=== PATIENT | female | born 1980 | race Caucasian/White ===

== ENCOUNTER → 2016-12-14 | Outpatient (CLI) | payer MEDICAID, OTHER ==
--- NOTE | 2017-01-06 00:35 | ECWPNPC ---
PATIENT NAME: RADHA RODRÍGUEZ : 1980 GENDER: FEMALE VISIT DATE: 12/14/2016 DISCHARGE DATE: 12/14/16 1444 VISIT LOCKED DATE TIME: PHYSICIAN: VALENCIA FRANKLIN RESOURCE: VALENCIA FRANKLIN REASON FOR APPOINTMENT 1. BACK PAIN HISTORY OF PRESENT ILLNESS NEW PATIENT CONSULT: WHEN DID YOUR PAIN FIRST START? . BRIEFLY DESCRIBE HOW YOUR PAIN STARTED? . HOW DOES YOUR PAIN CHANGE WITH TIME? . DOES YOUR PAIN AWAKEN YOU FROM SLEEP? . HOW MANY HOURS OF SLEEP DO YOU NORMALLY GET? . ANY DIAGNOSTIC TESTING? . FACILITY WHERE TESTS WERE DONE? ____. PAIN TREATMENT TREATMENT YES CANCER HAVE YOU EVER HAD ANY TYPE OF CANCER?NO NO. PAIN SCREENING: PATIENT HAS A COMPLAINT OF ACUTE OR CHRONIC PAIN YES FALL RISK SCREENING: SCREENING :NO FALLS IN THE PAST YEAR [place] INVENTORY: QUESTIONNAIRE ASSESSEDYES SCORE VALUE CALCULATED NO NOT COMPLETED = DENIES SUICIDAL OR HOMICIDAL IDEATION TODAY'S VISIT: NOTES: PT REFERRED BY DR TRINO VARGAS FOR CHRONIC BACK PAIN. PT IS STATUS LUMBAR FUSION L1-4 COMPLETED IN 1993. WAS IN AN ACCIDENT IN 1992 BUT WAS LOSING STRENGTH SENSATION AND HAD A LOT OF PAIN. NERVE SENSATION GOT BETTER AFTER SURGERY BUT HAS BEEN A PROBLEM WITH PAIN CONTINIOUSLY. HAS GOTTEN WORSE. PAIN IS CENTERED IN LOW BACK, RADIATES TO HIPS, FEELS LIKE BONES SHIFT WHEN LAYING. HAS SOME INTERMITTANT NERVE PAIN IN LEFT. TO LEVEL OF KNEE. HAS PATCHY PARETHESISA. NO LOSS OF SENSATION IN FEET/TOES. PAIN ALSO RADIATES TO BACK OF NECK. HAS BEEN HAVING STIFF AND PAINFUL KNEES, AND HANDS. AREA AROUND HARDWARE SOMETIMES IS DISCOLLARED. NEEDS TO LAY DOWN A LOT. HARDEST IS PROLONGED STIING. FEELS BEST WHEN LAYING DOWN. WAS AT PT 2009 FOR SCIATIC THERAPY - THIS HELPED. NO RELIEF WITH TENS UNIT. HAD INJECTIONS - UNSURE THE TYPE IN DONALDS. THIS WAS HEPFUL. HEAT. .MEDS - UNSURE IF HELPFUL. . CURRENT MEDICATIONS TAKING MULTIVITAMIN ADULT - TABLET 1 TABLET ORALLY DAILY TAKING ACETAMINOPHEN 500 MG CAPSULE 2 CAPSULES NEEDED ORALLY EVERY 6 HRS TAKING CYMBALTA 60 MG CAPSULE DELAYED RELEASE PARTICLES 1 CAPSULE ORALLY ONCE A DAY TAKING BACLOFEN 10 MG TABLET 1 TABLET WITH FOOD OR MILK ORALLY THREE TIMES A DAY NEEDED TAKING TRAMADOL HCL 50 MG TABLET 1-2 TABLET NEEDED ORALLY EVERY 6 HRS MEDICATION LIST REVIEWED AND RECONCILED WITH THE PATIENT PAST MEDICAL HISTORY HEART MURMUR A CHILD HEAD INJURY A CHILD BACK AND NECK PAIN ARTHRITIS SEVERE WEAKNESS LEFT LEG AT TIMES ALLERGIES ANIMAL FUR: HIVES: ALLERGY SURGICAL HISTORY SPINAL FUSION L2-L4 1993 FAMILY HISTORY FATHER: ALIVE, DIAGNOSED WITH HYPERTENSION MOTHER: ALIVE, DIAGNOSED WITH HYPERTENSION 1 SISTER(S) - HEALTHY. SOCIAL HISTORY GENERAL: PAIN CLINIC PFS, CLERGY, PUBLIC HEALTH REFERRALS PFS REFERRAL NEEDED?NO CLERGY REFERRAL NEEDED?NO PUBLIC HEALTH REFERRAL NEEDED?NO WAS THE PROVIDER NOTIFIED OF ANY PERTINENT INFO?NO PSYCHOLOGICAL HX TREATMENTNO ALCOHOL OR DRUG TREATMENTNO PATIENT: DENIES ABUSE OR MISUSE OF ANY MEDICATION, REPORTS BEING EMOTIONALLY STABLE, REPORTS HAVING A SAFE AND ADEQUATE PLACE TO STORE THE MEDICATIONS, DENIES RECREATIONAL DRUG USE, DENIES USE OF ANY ILLEGAL SUBSTANCE INCLUDING MARIJUANA OR COCAINE. ADVANCED DIRECTIVES HEALTH CARE PROXY?NO POWER OF RAW SCALES OPERATOR?NO SCREENING/ASSESSMENT TOOL NUTRITION ASSESSEDYES ARE YOU ON ANY SPECIAL DIET?NO ANY SIGNIFICANT CHANGES RELATED TO EATING, WEIGHT GAIN/LOSS, OR BOWEL HABITS?NO IF YES, IS YOUR PRIMARY CARE PROVIDER AWARE OF THIS?NO SPECIAL NEEDS DENTURES: NO , WALKER: NO , CANE: NO , WHEELCHAIR: NO , REFERRALS NEEDED: NO , LEVEL OF CARE? SELF , GLASSES: NO , CONTACTS: NO , HEARING AIDS: NO . TOBACCO USE ARE YOU A:CURRENT EVERY DAY SMOKER SMOKING CESSATION INFORMATION GIVEN 12/14/16 PATIENT REFUSES VAPORNO E-CIGARETTENO CAFFEINE CAFFEINE USE?NO 2-3 CUPS COFFEE PER DAY RECREATIONAL DRUG USE DRUG USE?NO PATIENT DENIES ABUSE OR MISSUSED OF ANY MEDICATION. PATIENT DENIES USE OF ANY ILLEGAL SUBSTANCE INCLUDING MARIJUANA OR COCAINE. REVIEW OF SYSTEMS CONSTITUTIONAL: ANY CHANGE IN YOUR MEDICAL CONDITION? NO . CHILLS NO . FEVER NO . INFECTION: DO YOU HAVE NEW INFECTIONS? NO . DO YOU HAVE HISTORY OF MRSA? NO . MUSCULOSKELETAL: ANY NEW PATTERNS OF PAIN OR NUMBNESS? NO . SYTEMIC LUPUS NO . GASTROENTEROLOGY: ANY NEW CHANGE IN BOWEL CONTROL? NO . BARRETTS ESOPHAGUS NO . CIRRHOSIS NO . HEPATITIS NO . LIVER FAILURE NO . ACID REFLUX NO . UNEXPLAINED WEIGHT LOSS NO . GENITOURINARY: ANY NEW CHANGE IN BLADDER CONTROL? NO . IS THERE A CHANCE YOU COULD BE ? NO . HEMATOLOGY/LYMPH: DO YOU TAKE ANY BLOOD THINNERS? (FOR EXAMPLE- COUMADIN, PLAVIX, AGGRENOX, PLATEL, PRADAXA, OR XARELTO) NO . WHEN WAS YOUR LAST DOSE? DATE: TIME: . LOW PLATELET COUNT NO . SICKLE CELL DISEASE NO . VON WILLIEBRANDS NO . FACTOR V LEIDEN NO . THALLASEMIA NO . ANEMIA NO . EASY BRUISING NO . NEUROLOGY: HAVE YOU FALLEN IN THE PAST 6 MONTHS? YES . ANY NEW EXTREMITY NUMBNESS OR WEAKNESS? NO . HEAD INJURY NO . DEMENTIA NO . CEREBRAL PALSY NO . MULTIPLE SCLEROSIS NO . DIZZINESS NO . HEADACHE MIGRAINES IN THE PAST . STROKES NO . VERTIGO NO . CARDIOLOGY: DO YOU HAVE A PACEMAKER OR DEFIBRILLATOR? NO . ANGINA NO . HEART ATTACK NO . HEART SURGERY NO . CONGESTIVE HEART FAILURE/FLUID OVERLOAD NO . CHEST PAIN NO . HIGH BLOOD PRESSURE NO . IRREGULAR HEART BEAT NO . RESPIRATORY: HAVE YOU BEEN SICK IN THE PAST WEEK? NO . FEVER NO . FLU LIKE SYMPTOMS? NO . CPAP NO . BYPAP NO . ASTHMA NO . EMPHYSEMA NO . CHRONIC LUNG DISEASES NO . SHORTNESS OF BREATH ON EXERTION NO . DO YOU USE ANY TYPE OF TOBACCO (SMOKE, SMOKELESS, CHEW)? NO . COUGH NO . SNORING NO . INTEGUMENTARY: DO YOU HAVE ANY RASHES OR OPEN SORES? NO . ALLERGIC/IMMUNO: ARE YOU ALLERGIC TO SHELLFISH OR IV DYE? NO . ANY NEW ALLERGIES? NO . PSYCHIATRIC: DO YOU HAVE THOUGHTS OF HURTING YOURSELF OR SOMEONE ELSE? NO . ARE YOU ABUSED, NEGLECTED, OR IN AN UNSAFE ENVIRONMENT? NO . ENDOCRINOLOGY: ARE YOU DIABETIC? NO . THYROID DISORDER NO . OTHER: DO YOU NEED ANY PRESCRIPTIONS? NO . IF YES, PLEASE LIST: ____ . ANY NEW PROBLEMS WITH YOUR MEDICATIONS? NO . WHEN DID YOU LAST EAT? ____ . WHEN DID YOU LAST DRINK? ____ . WHAT DID YOU LAST DRINK? ____ . NAME OF PERSON DRIVING YOU HOME? ____ . DO YOU HAVE ANY OTHER QUESTIONS OR CONCERNS NO . REVIEWED BY: PROVIDER: VALENCIA SANTO . VITAL SIGNS WT 150 LBS, HT 67", BMI 23.49 INDEX, BP 123/94 MM HG, HR 73 /MIN, RR 16 /MIN, TEMP 97.3 F, OXYGEN SAT % 99, NA INITIALS TL 1313, REVIEWED BY: CS. EXAMINATION GENERAL EXAMINATION: PSYCHALERT , ORIENTED X 3 , APPROPRIATE MOOD AND AFFECT . HEENT:NORMOCEPHALIC, NO LYMPHADENOPATHY, NO THYROMEGLY. LUNGS:CLEAR TO AUSCULTATION BILATERALLY, NO WHEEZES, RALES OR RHONCHI. HEART:1/6 SYSTOLOC MURMUR OVER LEFT STERNAL BORDER, 2ND INTERCOSTAL SPACE, , HEART RATE REGULAR. MUSCULOSKELETAL:MUSCLE STRENGTH TESTING 5/5 BILATERAL LOWER EXTREMITIES. POINT TENDERNESS OVER LMBAR SPINOUS PROCESSES ANS ACROSS THE LUMBOSACRAL AXIS. POINT TENDERNESS IDENTIFIED AT THE LEFT PIRIFORMIS, AND OVER THE LEFT SACRAL ILIAC JOINT. BILATERAL PAIN WITH SLR AT 30 DEGREES. CAN FLEX TO 45 DEGREES, EXTEND TO 10 DEGREES AND ROTATE WITH SIGNIFICANT DIFFICULTY. PAIN WITH PELVIC COMPRESSION BILATERALY. , TRIGGER POINTS:, ELICITED WITH PALPATION OVER LUMBAR PARAVERTEBRAL MUSCLES AND INTO THE SECRUM. RESTRICTION OF ROM IN THIS AREA. TIGHT FIBROUS BANDS ANRE IDENTIFIED IN THIS AREA WHICH DECREASE ROM. NEUROLOGIC EXAM:DTR'S 2+ BUE, 4+ BLE + CLONUS BILATRALLY. DECREASED SENSATION LEFT LATERAL AND ANTERIOR THIGH. ASSESSMENTS MYALGIA - M79.1 (PRIMARY) LUMBAR POST-LAMINECTOMY SYNDROME - M96.1 SPASTICITY - R25.2 TREATMENT LUMBAR POST-LAMINECTOMY SYNDROME TRIGGER POINT 3 + VALENCIA ANN 12/14/2016 2:30:57 PM > LOW BACK NOTES: TAKE BACLOFEN 1 AFTER WORK AND 2 AT BEDTIME,TRIGGER POINT INJECTION MATERIAL WAS PRINTED,TRIGGER POINT INJECTION: YOUR EXPERIENCE MATERIAL WAS PRINTED. PROCEDURE CODES FA211 ESTABILISHED PATIENT [facility] CHARGE FOLLOW UP AFTER INJECTION (REASON: CHECK AUTH FOR TPI LOW BACK) ELECTRONICALLY SIGNED BY SAVAGE HAIRSTON ON 01/05/2017 AT 09:50 AM EST DISCLAIMER : THIS IS A VISIT SUMMARY EXTRACTED FROM THE [employer] CHART. IT IS NOT A COPY OF THE [employer] PROGRESS NOTE. MATTHEW
== END ==
LOC: M PAIN 13:20
PROVIDERS: ATTEND Nurse Practitioner Family
DX: G89.29 Other chronic pain (principal); M79.1 Myalgia; M96.1 Postlaminectomy syndrome, not elsewhere classified; R25.2 Cramp and spasm; M19.90 Unspecified osteoarthritis, unspecified site; L23.81 Allergic contact dermatitis due to animal (cat) (dog) dander; F17.200 Nicotine dependence, unspecified, uncomplicated; Z79.1 Long term (current) use of non-steroidal anti-inflammatories (NSAID); Z79.891 Long term (current) use of opiate analgesic; Z79.899 Other long term (current) drug therapy; Z87.820 Personal history of traumatic brain injury

== ENCOUNTER → 2016-12-22 | Outpatient (CLI) | payer OTHER ==
[~2016-12-22] MED LIST: BUPIVACAINE HCL 0.25% 10 ML VIAL As Ordered ONE; BUPIVACAINE HCL 0.25% 30 ML VIAL As Ordered ONE; TRIAMCINOLONE ACETONIDE SUSP 40 MG/ML VIAL (J3301) As Ordered ONE; diazePAM 5 MG TAB As Ordered ONE; oxyCODONE 5MG TAB As Ordered ONE
--- NOTE | 2016-12-31 23:48 | ECWPNPC ---
PATIENT NAME: RADHA RODRÍGUEZ : 1980 GENDER: FEMALE VISIT DATE: 12/22/2016 DISCHARGE DATE: 12/22/16 1534 VISIT LOCKED DATE TIME: PHYSICIAN: CARLITOS COLON RESOURCE: CARLITOS COLON REASON FOR APPOINTMENT 1. TPI-LOW BACK CURRENT MEDICATIONS TAKING MULTIVITAMIN ADULT - TABLET 1 TABLET ORALLY DAILY, NOTES: 2-3 DAYS TAKING ACETAMINOPHEN 500 MG CAPSULE 2 CAPSULES NEEDED ORALLY EVERY 6 HRS, NOTES: 2-3 DAYS TAKING CYMBALTA 60 MG CAPSULE DELAYED RELEASE PARTICLES 1 CAPSULE ORALLY ONCE A DAY, NOTES: 1000 TAKING BACLOFEN 10 MG TABLET 1 TABLET WITH FOOD OR MILK ORALLY THREE TIMES A DAY NEEDED, NOTES: 12-21-161999 TAKING TRAMADOL HCL 50 MG TABLET 1-2 TABLET NEEDED ORALLY EVERY 6 HRS, NOTES: 1200 PAST MEDICAL HISTORY HEART MURMUR A CHILD HEAD INJURY A CHILD BACK AND NECK PAIN ARTHRITIS SEVERE WEAKNESS LEFT LEG AT TIMES ALLERGIES ANIMAL FUR: HIVES: ALLERGY SURGICAL HISTORY SPINAL FUSION L2-L4 1993 HOSPITALIZATION/MAJOR DIAGNOSTIC PROCEDURE SURGERY 1993 VITAL SIGNS WT 150 LBS, HT 67", BMI 23.49 INDEX, BP 117/80 MM HG, HR 81 /MIN, RR 16 /MIN, TEMP 95.5 F, OXYGEN SAT % 99%, NA INITIALS SC 14:02. ASSESSMENTS MYALGIA - M79.1 (PRIMARY) PROCEDURES PN TRIGGER POINT INJECTION WITH STEROIDS PRE PROCEDURE DIAGNOSIS 1. MYALGIA 2. PAIN AT LEFT THORACIC AREA AND LEFT LOW BACK AREA POST PROCEDURE DIAGNOSIS 1. MYALGIA 2. PAIN AT LEFT THORACIC AREA AND LEFT LOW BACK AREA PROCEDURE TRIGGER POINT INJECTION AT LEFT THORACIC AREA AND LEFT LOW BACK AREA SURGEON DR. CARLITOS COLON WASTEWATER PLANT OPERATOR NONE ANESTHESIA LOCAL PRE PROCEDURE NOTE THE PATIENT HAS A HISTORY OF CHRONIC PAIN AT THE LEFT THORACIC AREA AND LEFT LOW BACK AREA. I EVALUATE THE PATIENT AND REVIEWED THE CHART. THERE IS EVIDENCE OF BANDS OF TISSUE WITH RESTRICTION OF MOVEMENT AND PRESENCE OF TRIGGER POINT AT THE AFFECTED AREA. I WENT OVER THE RISKS, ALTERNATIVES, AND BENEFITS ASSOCIATED WITH THIS PROCEDURE. THE PATIENT WOULD LIKE TO PROCEED AND GIVE CONSENT TO PERFORMED THE PROCEDURE. THE PATIENT DENIES UNEXPLAINABLE WEIGHT LOSS, FEVER, CHILLS, OR NEW CHANGES IN URINARY OR BOWEL CONTROL DESCRIPTION OF PROCEDURE THE PATIENT WAS BROUGHT TO THE PROCEDURE ROOM AND PLACED IN THE SITTING POSITION. THE AREA WAS CLEANED WITH ALCOHOL. THE PROCEDURE WAS DONE USING ASEPTIC STERILE TECHNIQUE. I CHECKED LATERALITY AND THE LEVEL WHERE THE PROCEDURE WAS GOING TO BE PERFORMED WITH THE PATIENT AND THE SUPPORTING STAFF AT THE MOMENT OF THE TIME OUT IN THE PROCEDURE ROOM. USING A 25-GAUGE NEEDLE, TRIGGER POINTS WERE INJECTED AT THE LEFT THORACIC AREA AND LEFT LOW BACK AREA WITH A TOTAL OF 40 ML OF BUPIVACAINE 0.25% AND KENALOG 40 MG. THERE WAS NO EVIDENCE OF BLOOD, PARESTHESIA OR CEREBROSPINAL FLUID DURING THE PROCEDURE. THE PATIENT WAS SENT TO THE RECOVERY ROOM. THE PATIENT WAS MOVING THE EXTREMITIES AND DOING WELL. THERE WAS NO COMPLICATION DURING THE PROCEDURE POST PROCEDURE NOTE THE PATIENT WILL BE SEEN IN A FOLLOW UP IN THE NEXT FEW WEEKS. INSTRUCTIONS WERE GIVEN, QUESTIONS WERE ANSWERED, AND THE PATIENT EXPRESSED UNDERSTANDING AND AGREES WITH THE PLAN. INSTRUCTIONS WERE GIVEN, QUESTIONS WERE ANSWERED, PATIENT REPORTS UNDERSTANDING AND AGREES WITH THE PLAN. I, OBED EMERY, DOCUMENTED THE ABOVE INFORMATION ACTING A SCRIBE FOR DR. COLON. I HAVE REVIEWED THE ABOVE DOCUMENT, WRITTEN BY OBED EMERY SCRIBE AND I VERIFY THAT IT IS ACCURATE. PROCEDURE CODES 15773 INJ TRIGGER POINT 11/27 [facility] FOLLOW UP 3 WEEKS ELECTRONICALLY SIGNED BY CARLITOS COLON MD ON 12/31/2016 AT 07:53 PM EST DISCLAIMER : THIS IS A VISIT SUMMARY EXTRACTED FROM THE [employer] CHART. IT IS NOT A COPY OF THE [employer] PROGRESS NOTE. MATTHEW
== END ==
LOC: M PAIN 14:00
PROVIDERS: ATTEND Anesthesiology
DX: G89.29 Other chronic pain (principal); M79.1 Myalgia; M54.6 Pain in thoracic spine; M54.5 Low back pain; M19.90 Unspecified osteoarthritis, unspecified site; J30.81 Allergic rhinitis due to animal (cat) (dog) hair and dander; Z79.1 Long term (current) use of non-steroidal anti-inflammatories (NSAID); Z79.891 Long term (current) use of opiate analgesic; Z79.899 Other long term (current) drug therapy
CPT/HCPCS: 20552; J3301

== ENCOUNTER → 2017-01-15 | Outpatient (CLI) | payer OTHER ==
--- NOTE | 2017-01-19 00:07 | ECWPNPC ---
PATIENT NAME: RADHA RODRÍGUEZ : 1980 GENDER: FEMALE VISIT DATE: 01/15/2017 DISCHARGE DATE: 01/15/17 1528 VISIT LOCKED DATE TIME: PHYSICIAN: VALENCIA FRANKLIN RESOURCE: VALENCIA FRANKLIN REASON FOR APPOINTMENT 1. BACK HISTORY OF PRESENT ILLNESS HISTORY OF PRESENT ILLNESS: PAIN THE PATIENT DESCRIBES THE PAIN... FALL RISK SCREENING: SCREENING :NO FALLS IN THE PAST YEAR TODAY'S VISIT: NOTES: RATES PAIN TODAY 06/04. IS S/P TPI TO LOW BACK WITH STEROIDS COMPLETED ON 12/22/16. HAD SOME RELEIF IN THE AREA WHERE INJECTION WAS DONE. IS NOW NOTING PAIN ABOVE AND BELOW THE PREVIOUS INJECTION AREA. 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 CURRENT MEDICATIONS TAKING MULTIVITAMIN ADULT - TABLET 1 TABLET ORALLY DAILY TAKING ACETAMINOPHEN 500 MG CAPSULE 2 CAPSULES NEEDED ORALLY EVERY 6 HRS TAKING CYMBALTA 60 MG CAPSULE DELAYED RELEASE PARTICLES 1 CAPSULE ORALLY ONCE A DAY TAKING BACLOFEN 10 MG TABLET 1 TABLET WITH FOOD OR MILK ORALLY THREE TIMES A DAY NEEDED TAKING TRAMADOL HCL 50 MG TABLET 1-2 TABLET NEEDED ORALLY EVERY 6 HRS MEDICATION LIST REVIEWED AND RECONCILED WITH THE PATIENT PAST MEDICAL HISTORY HEART MURMUR A CHILD HEAD INJURY A CHILD BACK AND NECK PAIN ARTHRITIS SEVERE WEAKNESS LEFT LEG AT TIMES ALLERGIES ANIMAL FUR: HIVES: ALLERGY SURGICAL HISTORY SPINAL FUSION L2-L4 1993 FAMILY HISTORY FATHER: ALIVE, DIAGNOSED WITH HYPERTENSION MOTHER: ALIVE, DIAGNOSED WITH HYPERTENSION 1 SISTER(S) - HEALTHY. . SOCIAL HISTORY GENERAL: TOBACCO USE ARE YOU A:CURRENT EVERY DAY SMOKER VAPORNO SMOKING CESSATION INFORMATION GIVEN 12/14/16 PATIENT REFUSES E-CIGARETTENO ARE YOU A:NONSMOKER RECREATIONAL DRUG USE PATIENT DENIES USE OF ANY ILLEGAL SUBSTANCE INCLUDING MARIJUANA OR COCAINE. PATIENT DENIES ABUSE OR MISSUSED OF ANY MEDICATION. DRUG USE?NO CAFFEINE CAFFEINE USE?NO 2-3 CUPS COFFEE PER DAY LEARNING BARRIERS / SPECIAL NEEDS ORIENTED TO PLAN OF CARE: PATIENT, PAIN MANAGEMENT PATIENT, ORIENTED TO PLAN OF CARE: PATIENT, PAIN MANAGEMENT PATIENT. PSYCHOLOGICAL HX TREATMENTNO NEW PATIENT PAIN DIARY TODAY'S VISITNOTES FROM 0-10, WHAT LEVEL IS YOUR PAIN TODAY?0 PAIN CLINIC PFS, CLERGY, PUBLIC HEALTH REFERRALS CLERGY REFERRAL NEEDED?NO WAS THE PROVIDER NOTIFIED OF ANY PERTINENT INFO?NO PFS REFERRAL NEEDED?NO PUBLIC HEALTH REFERRAL NEEDED?NO PFS REFERRAL NEEDED?NO CLERGY REFERRAL NEEDED?NO PUBLIC HEALTH REFERRAL NEEDED?NO WAS THE PROVIDER NOTIFIED OF ANY PERTINENT INFO?NO PFS REFERRAL NEEDED?NO CLERGY REFERRAL NEEDED?NO PUBLIC HEALTH REFERRAL NEEDED?NO WAS THE PROVIDER NOTIFIED OF ANY PERTINENT INFO?NO PATIENT: DENIES ABUSE OR MISUSE OF ANY MEDICATION, REPORTS BEING EMOTIONALLY STABLE, REPORTS HAVING A SAFE AND ADEQUATE PLACE TO STORE THE MEDICATIONS, DENIES RECREATIONAL DRUG USE, DENIES USE OF ANY ILLEGAL SUBSTANCE INCLUDING MARIJUANA OR COCAINE. ADVANCED DIRECTIVES HEALTH CARE PROXY?NO POWER OF TUBE CUTTER?NO HOSPITALIZATION/MAJOR DIAGNOSTIC PROCEDURE SURGERY 1993 REVIEW OF SYSTEMS CONSTITUTIONAL: ANY CHANGE IN YOUR MEDICAL CONDITION? NO . CHILLS NO . FEVER NO . INFECTION: DO YOU HAVE NEW INFECTIONS? NO . DO YOU HAVE HISTORY OF MRSA? NO . MUSCULOSKELETAL: ANY NEW PATTERNS OF PAIN OR NUMBNESS? NO . GASTROENTEROLOGY: ANY NEW CHANGE IN BOWEL CONTROL? NO . GENITOURINARY: ANY NEW CHANGE IN BLADDER CONTROL? NO . IS THERE A CHANCE YOU COULD BE ? NO . HEMATOLOGY/LYMPH: DO YOU TAKE ANY BLOOD THINNERS? (FOR EXAMPLE- COUMADIN, PLAVIX, AGGRENOX, PLATEL, PRADAXA, OR XARELTO) NO . WHEN WAS YOUR LAST DOSE? DATE: TIME: . NEUROLOGY: HAVE YOU FALLEN IN THE PAST 6 MONTHS? NO . ANY NEW EXTREMITY NUMBNESS OR WEAKNESS? NO . CARDIOLOGY: DO YOU HAVE A PACEMAKER OR DEFIBRILLATOR? NO . RESPIRATORY: HAVE YOU BEEN SICK IN THE PAST WEEK? NO . FEVER NO . FLU LIKE SYMPTOMS? NO . COUGH NO . INTEGUMENTARY: DO YOU HAVE ANY RASHES OR OPEN SORES? NO . ALLERGIC/IMMUNO: ARE YOU ALLERGIC TO SHELLFISH OR IV DYE? NO . ANY NEW ALLERGIES? NO . PSYCHIATRIC: DO YOU HAVE THOUGHTS OF HURTING YOURSELF OR SOMEONE ELSE? NO . ARE YOU ABUSED, NEGLECTED, OR IN AN UNSAFE ENVIRONMENT? NO . ENDOCRINOLOGY: ARE YOU DIABETIC? NO . OTHER: DO YOU NEED ANY PRESCRIPTIONS? NO . IF YES, PLEASE LIST: ____ . ANY NEW PROBLEMS WITH YOUR MEDICATIONS? NO . WHEN DID YOU LAST EAT? ____ . WHEN DID YOU LAST DRINK? ____ . WHAT DID YOU LAST DRINK? ____ . NAME OF PERSON DRIVING YOU HOME? ____ . DO YOU HAVE ANY OTHER QUESTIONS OR CONCERNS NO . REVIEWED BY: PROVIDER: VALENCIA SANTO . VITAL SIGNS WT 145.4 LBS, HT 67", BMI 22.77 INDEX, BP 127/96 MM HG, HR 99 /MIN, RR 16 /MIN, TEMP 97.2 F, OXYGEN SAT % 99%, NA INITIALS SC 14:24, REVIEWED BY: LS. EXAMINATION GENERAL EXAMINATION: PSYCHALERT , ORIENTED X 3 , POOR EYE CONTACT. VERY QUIET.. LUNGS:CLEAR TO AUSCULTATION BILATERALLY. HEART:HEART RATE REGULAR. MUSCULOSKELETAL:TRIGGER POINTS ARE IDENTIFIED OVER THE MIDTHORACIC PARAVERTEBRAL MUSCLES. FIBROUS BANDS WHICH RESTRICT RANGE OF MOTION WITH TWISTING FLEXION AND EXTENSION. TENDERNESS ALSO NOTED OVER THE LUMBAR PARAVERTEBRAL MUSCLES AND INTO THE SACRUM. SLOW STRENGTH IS NORMAL. WE'LL TO RISE TO A STANDING POSITION POSTURE IS HELD VERY STIFFLY.. ASSESSMENTS MYALGIA - M79.1 (PRIMARY) LUMBAR POST-LAMINECTOMY SYNDROME - M96.1 SPASTICITY - R25.2 TREATMENT MYALGIA TRIGGER POINT 3 + VALENCIA ANN 01/15/2017 3:15:29 PM > LOW THORACIC NOTES: CONTINUE CURRENT MEDS. DISPOSITION & COMMUNICATION FOLLOW UP AFTER INJECTION (REASON: CHECK TPI AUTH - LOW THORACIC) ELECTRONICALLY SIGNED BY SAVAGE HAIRSTON ON 01/18/2017 AT 11:59 AM EST DISCLAIMER : THIS IS A VISIT SUMMARY EXTRACTED FROM THE [employer] CHART. IT IS NOT A COPY OF THE [employer] PROGRESS NOTE. MTDD
== END ==
LOC: M PAIN 14:20
PROVIDERS: ATTEND Nurse Practitioner Family
DX: Z09 Encounter for follow-up examination after completed treatment for conditions other than malignant neoplasm (principal); G89.29 Other chronic pain; M54.5 Low back pain; M54.2 Cervicalgia; M79.1 Myalgia; F17.210 Nicotine dependence, cigarettes, uncomplicated; L23.81 Allergic contact dermatitis due to animal (cat) (dog) dander; M96.1 Postlaminectomy syndrome, not elsewhere classified; M19.90 Unspecified osteoarthritis, unspecified site; R25.2 Cramp and spasm; Z79.891 Long term (current) use of opiate analgesic; Z79.899 Other long term (current) drug therapy; Z98.1 Arthrodesis status; Z91.048 Other nonmedicinal substance allergy status

== ENCOUNTER → 2017-02-06 | Outpatient (CLI) | payer OTHER ==
--- NOTE | 2017-02-10 23:23 | ECWPNPC ---
PATIENT NAME: RADHA RODRÍGUEZ : 1980 GENDER: FEMALE VISIT DATE: 02/06/2017 DISCHARGE DATE: 02/06/17 1428 VISIT LOCKED DATE TIME: PHYSICIAN: CARLITOS COLON RESOURCE: CARLITOS COLON REASON FOR APPOINTMENT 1. TPI HISTORY OF PRESENT ILLNESS HISTORY OF PRESENT ILLNESS: PAIN THE PATIENT DESCRIBES THE PAIN... FALL RISK SCREENING: SCREENING :NO FALLS IN THE PAST YEAR CURRENT MEDICATIONS TAKING MULTIVITAMIN ADULT - TABLET 1 TABLET ORALLY DAILY, NOTES: 02/04/17 TAKING ACETAMINOPHEN 500 MG CAPSULE 2 CAPSULES NEEDED ORALLY EVERY 6 HRS, NOTES: 02/06/17 0900 TAKING CYMBALTA 60 MG CAPSULE DELAYED RELEASE PARTICLES 1 CAPSULE ORALLY ONCE A DAY, NOTES: 02/06/17 09 TAKING BACLOFEN 10 MG TABLET 1 TABLET WITH FOOD OR MILK ORALLY THREE TIMES A DAY NEEDED, NOTES: 02/05/17 2200 TAKING TRAMADOL HCL 50 MG TABLET 1-2 TABLET NEEDED ORALLY EVERY 6 HRS, NOTES: 02/05/17 0900 MEDICATION LIST REVIEWED AND RECONCILED WITH THE PATIENT PAST MEDICAL HISTORY HEART MURMUR A CHILD HEAD INJURY A CHILD BACK AND NECK PAIN ARTHRITIS SEVERE WEAKNESS LEFT LEG AT TIMES ALLERGIES ANIMAL FUR: HIVES: ALLERGY SOCIAL HISTORY GENERAL: TOBACCO USE ARE YOU A:NONSMOKER LEARNING BARRIERS / SPECIAL NEEDS ORIENTED TO PLAN OF CARE: PATIENT, PAIN MANAGEMENT PATIENT, ORIENTED TO PLAN OF CARE: PATIENT, PAIN MANAGEMENT PATIENT. NEW PATIENT PAIN DIARY TODAY'S VISITNOTES FROM 0-10, WHAT LEVEL IS YOUR PAIN TODAY?0 PAIN CLINIC PFS, CLERGY, PUBLIC HEALTH REFERRALS PFS REFERRAL NEEDED?NO CLERGY REFERRAL NEEDED?NO PUBLIC HEALTH REFERRAL NEEDED?NO WAS THE PROVIDER NOTIFIED OF ANY PERTINENT INFO?NO PFS REFERRAL NEEDED?NO CLERGY REFERRAL NEEDED?NO PUBLIC HEALTH REFERRAL NEEDED?NO WAS THE PROVIDER NOTIFIED OF ANY PERTINENT INFO?NO REVIEW OF SYSTEMS CONSTITUTIONAL: ANY CHANGE IN YOUR MEDICAL CONDITION? NO . CHILLS NO . FEVER NO . INFECTION: DO YOU HAVE NEW INFECTIONS? NO . DO YOU HAVE HISTORY OF MRSA? NO . MUSCULOSKELETAL: ANY NEW PATTERNS OF PAIN OR NUMBNESS? NO . GASTROENTEROLOGY: ANY NEW CHANGE IN BOWEL CONTROL? NO . GENITOURINARY: ANY NEW CHANGE IN BLADDER CONTROL? NO . IS THERE A CHANCE YOU COULD BE ? NO . HEMATOLOGY/LYMPH: DO YOU TAKE ANY BLOOD THINNERS? (FOR EXAMPLE- COUMADIN, PLAVIX, AGGRENOX, PLATEL, PRADAXA, OR XARELTO) NO . WHEN WAS YOUR LAST DOSE? DATE: TIME: . NEUROLOGY: HAVE YOU FALLEN IN THE PAST 6 MONTHS? YES FELL IN SNOW-NO INJURY/NO ED EVAL . ANY NEW EXTREMITY NUMBNESS OR WEAKNESS? NO . CARDIOLOGY: DO YOU HAVE A PACEMAKER OR DEFIBRILLATOR? NO . RESPIRATORY: HAVE YOU BEEN SICK IN THE PAST WEEK? NO . FEVER NO . FLU LIKE SYMPTOMS? NO . COUGH NO . INTEGUMENTARY: DO YOU HAVE ANY RASHES OR OPEN SORES? NO . ALLERGIC/IMMUNO: ARE YOU ALLERGIC TO SHELLFISH OR IV DYE? NO . ANY NEW ALLERGIES? NO . PSYCHIATRIC: DO YOU HAVE THOUGHTS OF HURTING YOURSELF OR SOMEONE ELSE? NO . ARE YOU ABUSED, NEGLECTED, OR IN AN UNSAFE ENVIRONMENT? NO . ENDOCRINOLOGY: ARE YOU DIABETIC? NO . OTHER: DO YOU NEED ANY PRESCRIPTIONS? NO . IF YES, PLEASE LIST: ____ . ANY NEW PROBLEMS WITH YOUR MEDICATIONS? NO . WHEN DID YOU LAST EAT? ____02/05/17 2100 . WHEN DID YOU LAST DRINK? ____02/06/17 1000 . WHAT DID YOU LAST DRINK? ____WATER . NAME OF PERSON DRIVING YOU HOME? ____DAD . DO YOU HAVE ANY OTHER QUESTIONS OR CONCERNS NO . REVIEWED BY: PROVIDER: . VITAL SIGNS WT 143.3 LBS, HT 67", BMI 22.44 INDEX, BP 142/97 MM HG, HR 92 /MIN, RR 16 /MIN, TEMP 96.9 F, OXYGEN SAT % 99, NA INITIALS [id number], REVIEWED BY: MLF. ASSESSMENTS MYALGIA - M79.1 (PRIMARY) PROCEDURES PN TRIGGER POINT INJECTION WITH STEROIDS PRE PROCEDURE DIAGNOSIS 1. MYALGIA 2. PAIN AT BILATERAL THORACIC AREA AND LEFT LOWER BACK AREA POST PROCEDURE DIAGNOSIS 1. MYALGIA 2. PAIN AT BILATERAL THORACIC AREA AND LEFT LOWER BACK AREA PROCEDURE TRIGGER POINT INJECTION AT BILATERAL THORACIC AREA AND LEFT LOWER BACK AREA SURGEON DR. CARLITOS COLON REED DIPPER NONE ANESTHESIA LOCAL PRE PROCEDURE NOTE THE PATIENT HAS A HISTORY OF CHRONIC PAIN AT THE RIGHT AND LEFT THORACIC AREA AND LEFT LOWER BACK AREA. I EVALUATE THE PATIENT AND REVIEWED THE CHART. THERE IS EVIDENCE OF BANDS OF TISSUE WITH RESTRICTION OF MOVEMENT AND PRESENCE OF TRIGGER POINT AT THE AFFECTED AREA. I WENT OVER THE RISKS, ALTERNATIVES, AND BENEFITS ASSOCIATED WITH THIS PROCEDURE. THE PATIENT WOULD LIKE TO PROCEED AND GIVE CONSENT TO PERFORMED THE PROCEDURE. THE PATIENT DENIES UNEXPLAINABLE WEIGHT LOSS, FEVER, CHILLS, OR NEW CHANGES IN URINARY OR BOWEL CONTROL DESCRIPTION OF PROCEDURE THE PATIENT WAS BROUGHT TO THE PROCEDURE ROOM AND PLACED IN THE SITTING POSITION. THE AREA WAS CLEANED WITH ALCOHOL. THE PROCEDURE WAS DONE USING ASEPTIC STERILE TECHNIQUE. I CHECKED LATERALITY AND THE LEVEL WHERE THE PROCEDURE WAS GOING TO BE PERFORMED WITH THE PATIENT AND THE SUPPORTING STAFF AT THE MOMENT OF THE TIME OUT IN THE PROCEDURE ROOM. USING A 25-GAUGE NEEDLE, TRIGGER POINTS WERE INJECTED AT THE RIGHT AND LEFT THORACIC AREA AND LEFT LOWER BACK AREA WITH A TOTAL OF 40 ML OF BUPIVACAINE 0.25% AND KENALOG 40 MG. THERE WAS NO EVIDENCE OF BLOOD, PARESTHESIA OR CEREBROSPINAL FLUID DURING THE PROCEDURE. THE PATIENT WAS SENT TO THE RECOVERY ROOM. THE PATIENT WAS MOVING THE EXTREMITIES AND DOING WELL. THERE WAS NO COMPLICATION DURING THE PROCEDURE POST PROCEDURE NOTE THE PATIENT WILL BE SEEN IN A FOLLOW UP IN THE NEXT FEW WEEKS. INSTRUCTIONS WERE GIVEN, QUESTIONS WERE ANSWERED, AND THE PATIENT EXPRESSED UNDERSTANDING AND AGREES WITH THE PLAN. I, CAREN NICOLE, DOCUMENTED THE ABOVE INFORMATION ACTING A SCRIBE FOR DR. COLON. I HAVE REVIEWED THE ABOVE DOCUMENT, WRITTEN BY CAREN SAMSON AND I VERIFY THAT IT IS ACCURATE PROCEDURE CODES 88283 INJECT TRIGGER POINTS 3/> DISPOSITION & COMMUNICATION FOLLOW UP 3 WEEKS ELECTRONICALLY SIGNED BY CARLITOS COLON MD ON 02/10/2017 AT 09:36 PM EDT DISCLAIMER : THIS IS A VISIT SUMMARY EXTRACTED FROM THE [employer] CHART. IT IS NOT A COPY OF THE [employer] PROGRESS NOTE. MTDShanda
== END ==
LOC: M PAIN 11:40
PROVIDERS: ATTEND Anesthesiology
DX: G89.29 Other chronic pain (principal); M79.1 Myalgia; M54.5 Low back pain; M54.6 Pain in thoracic spine; M19.90 Unspecified osteoarthritis, unspecified site; Z79.891 Long term (current) use of opiate analgesic; Z79.899 Other long term (current) drug therapy; Z91.048 Other nonmedicinal substance allergy status
CPT/HCPCS: 20553; J3301

== ENCOUNTER → 2017-02-19 | Outpatient (CLI) | payer OTHER | LOC: M PAIN 14:00 | PROVIDERS: ATTEND Nurse Practitioner Family | DX: Z09 Encounter for follow-up examination after completed treatment for conditions other than malignant neoplasm (principal); M96.1 Postlaminectomy syndrome, not elsewhere classified; M79.1 Myalgia; R25.2 Cramp and spasm; M19.90 Unspecified osteoarthritis, unspecified site; L23.81 Allergic contact dermatitis due to animal (cat) (dog) dander; Z79.1 Long term (current) use of non-steroidal anti-inflammatories (NSAID); Z79.899 Other long term (current) drug therapy ==

== ENCOUNTER → 2017-03-19 | Outpatient (CLI) | payer OTHER ==
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
== END ==
LOC: M PAIN 14:00
PROVIDERS: ATTEND Nurse Practitioner Family
DX: M96.1 Postlaminectomy syndrome, not elsewhere classified (principal); M79.1 Myalgia; R25.2 Cramp and spasm; M19.90 Unspecified osteoarthritis, unspecified site; L23.81 Allergic contact dermatitis due to animal (cat) (dog) dander; Z79.899 Other long term (current) drug therapy

== ENCOUNTER → 2017-05-17 | Outpatient (CLI) | payer OTHER ==
--- NOTE | 2017-06-06 01:22 | ECWPNPC ---
PATIENT NAME: RADHA RODRÍGUEZ : 1980 GENDER: FEMALE VISIT DATE: 05/17/2017 DISCHARGE DATE: 05/17/17 1000 VISIT LOCKED DATE TIME: PHYSICIAN: VALENCIA FRANKLIN RESOURCE: VALENCIA FRANKLIN REASON FOR APPOINTMENT 1. BACK HISTORY OF PRESENT ILLNESS HISTORY OF PRESENT ILLNESS: PAIN THE PATIENT DESCRIBES THE PAIN... FALL RISK SCREENING: SCREENING :NO FALLS IN THE PAST YEAR TODAY'S VISIT: NOTES: RATES PAIN TODAY 8/10. DESCRIBES PAIN TODAY CONSTANT, CONSTANT, SHARP, STABBING, TENDER, SORE AND SHOOTING. NOTES NOT MUCH CHANGE AND LEFT SIDE LOW BACK IS THE WORST. SLEEP HAS IMPROVED WITH NEW MATTRESS. NOTES NOT MOVING PROVIDES THE MOST COMFORT.. CURRENT MEDICATIONS TAKING MULTIVITAMIN ADULT - TABLET 1 TABLET ORALLY DAILY, NOTES: 02/04/17 TAKING ACETAMINOPHEN 500 MG CAPSULE 2 CAPSULES NEEDED ORALLY EVERY 6 HRS, NOTES: 02/06/17 0900 TAKING TRAMADOL HCL 50 MG TABLET 1-2 TABLET NEEDED ORALLY EVERY 4- 6 HRS PRN PAIN MDD=5 TAKING BACLOFEN 10 MG TABLET 1 TABLET WITH FOOD OR MILK ORALLY THREE TIMES A DAY NEEDED TAKING NORCO 10-325 MG TABLET 1 TABLET NEEDED ORALLY EVERY 6-8 HOURS PRN PAIN MDD=3 TAKING CYMBALTA 60 MG CAPSULE DELAYED RELEASE PARTICLES 1 CAPSULE ORALLY ONCE A DAY TAKING MELOXICAM 15 MG TABLET 1 TABLET ORALLY BEFORE BEDTIME MEDICATION LIST REVIEWED AND RECONCILED WITH THE PATIENT PAST MEDICAL HISTORY HEART MURMUR A CHILD HEAD INJURY A CHILD BACK AND NECK PAIN ARTHRITIS SEVERE WEAKNESS LEFT LEG AT TIMES ALLERGIES ANIMAL FUR: HIVES: ALLERGY SOCIAL HISTORY GENERAL: TOBACCO USE ARE YOU A:CURRENT SMOKER PATIENT COUNSELED ON THE DANGERS OF TOBACCO USE AND URGED TO QUIT:05/17/2017 ARE YOU INTERESTED IN QUITTING?NOT READY TO QUIT COUNSELED THE PATIENT ON SMOKING EFFECTS, EDUCATION [id number]/22/2017 RECREATIONAL DRUG USE DRUG USE? NO , PATIENT DENIES ABUSE OR MISSUSED OF ANY MEDICATION . , PATIENT DENIES USE OF ANY ILLEGAL SUBSTANCE INCLUDING MARIJUANA OR COCAINE . . CAFFEINE CAFFEINE USE? NO 2-3 CUPS COFFEE PER DAY. PSYCHOLOGICAL HX TREATMENT NO . PAIN CLINIC PFS, CLERGY, PUBLIC HEALTH REFERRALS PFS REFERRAL NEEDED? NO , CLERGY REFERRAL NEEDED? NO , PUBLIC HEALTH REFERRAL NEEDED? NO , WAS THE PROVIDER NOTIFIED OF ANY PERTINENT INFO? NO . PATIENT: DENIES ABUSE OR MISUSE OF ANY MEDICATION, REPORTS BEING EMOTIONALLY STABLE, REPORTS HAVING A SAFE AND ADEQUATE PLACE TO STORE THE MEDICATIONS, DENIES RECREATIONAL DRUG USE, DENIES USE OF ANY ILLEGAL SUBSTANCE INCLUDING MARIJUANA OR COCAINE. ADVANCE DIRECTIVES HEALTH CARE PROXY? NO , POWER OF ADVANCED REGISTERED NURSE? NO . REVIEW OF SYSTEMS REVIEWED BY: PROVIDER: VALENCIA SANTO . CONSTITUTIONAL: ANY CHANGE IN YOUR MEDICAL CONDITION? NO . CHILLS NO . FEVER NO . INFECTION: DO YOU HAVE NEW INFECTIONS? NO . DO YOU HAVE HISTORY OF MRSA? NO . MUSCULOSKELETAL: ANY NEW PATTERNS OF PAIN OR NUMBNESS? NO . GASTROENTEROLOGY: ANY NEW CHANGE IN BOWEL CONTROL? NO . GENITOURINARY: ANY NEW CHANGE IN BLADDER CONTROL? NO . IS THERE A CHANCE YOU COULD BE ? NO . HEMATOLOGY/LYMPH: DO YOU TAKE ANY BLOOD THINNERS? (FOR EXAMPLE- COUMADIN, PLAVIX, AGGRENOX, PLATEL, PRADAXA, OR XARELTO) NO . WHEN WAS YOUR LAST DOSE? DATE: TIME: . NEUROLOGY: HAVE YOU FALLEN IN THE PAST 6 MONTHS? NO . ANY NEW EXTREMITY NUMBNESS OR WEAKNESS? NO . CARDIOLOGY: DO YOU HAVE A PACEMAKER OR DEFIBRILLATOR? NO . RESPIRATORY: HAVE YOU BEEN SICK IN THE PAST WEEK? NO . FEVER NO . FLU LIKE SYMPTOMS? NO . COUGH NO . INTEGUMENTARY: DO YOU HAVE ANY RASHES OR OPEN SORES? NO . ALLERGIC/IMMUNO: ARE YOU ALLERGIC TO SHELLFISH OR IV DYE? NO . ANY NEW ALLERGIES? NO . PSYCHIATRIC: DO YOU HAVE THOUGHTS OF HURTING YOURSELF OR SOMEONE ELSE? NO . ARE YOU ABUSED, NEGLECTED, OR IN AN UNSAFE ENVIRONMENT? NO . ENDOCRINOLOGY: ARE YOU DIABETIC? NO . OTHER: DO YOU NEED ANY PRESCRIPTIONS? NO . IF YES, PLEASE LIST: ____ . ANY NEW PROBLEMS WITH YOUR MEDICATIONS? NO . WHEN DID YOU LAST EAT? ____ . WHEN DID YOU LAST DRINK? ____ . WHAT DID YOU LAST DRINK? ____ . NAME OF PERSON DRIVING YOU HOME? ____ . DO YOU HAVE ANY OTHER QUESTIONS OR CONCERNS NO . VITAL SIGNS WT 140 LBS, HT 67", BMI 21.92 INDEX, BP 126/82 MM HG, HR 103 /MIN, RR 16 /MIN, TEMP 97.7 F, OXYGEN SAT % 100%, NA INITIALS TL 0933, REVIEWED BY: ZEE. EXAMINATION GENERAL EXAMINATION: PSYCHALERT , ORIENTED X 3 , APPEARS SAD. LUNGS:CLEAR TO AUSCULTATION BILATERALLY. HEART:HEART RATE REGULAR. MUSCULOSKELETAL:POINT TENDERNESS OVER LEFT LUMBAR PARASPINOUS MUSCLES AND LUMBAR FACETS. POSTURE STIFF. , MUSCLE STRENGTH TESTING 5/5 BILATERAL UPPER AND LOWER EXTREMITIES. ASSESSMENTS MYALGIA - M79.1 (PRIMARY) LUMBAR POST-LAMINECTOMY SYNDROME - M96.1 SPASTICITY - R25.2 TREATMENT MYALGIA NOTES: CONTINUE CURRENT MEDS. USE HUMOR, GUIDED IMAGRY, SOME YOGA STRETCHES.. CLINICAL NOTES: ISTOP REGISTRY REVIEWED AND DEMNOSTRATES COMPLLIANCE. BRINGS IN MEDICATIONS WHICH IS APPROPRIATE FOR WHAT WAS DISPENSED. RECENT URINE TOXICOLOGY REVIEWED. NO UNAUTHORIZED MEDICATIONS. NO ILLICIT SUBSTANCES AND PRESCRIBED MEDICATIONS WERE PRESENT. PROCEDURE CODES FA211 ESTABILISHED PATIENT [facility] FACILITY CHARGE DISPOSITION & COMMUNICATION FOLLOW UP END OF JUNE (REASON: BACK PAIN) ELECTRONICALLY SIGNED BY SAVAGE HAIRSTON ON 06/05/2017 AT 05:19 PM EDT DISCLAIMER : THIS IS A VISIT SUMMARY EXTRACTED FROM THE [employer] CHART. IT IS NOT A COPY OF THE [employer] PROGRESS NOTE. MATTHEW
== END ==
LOC: M PAIN 09:00
PROVIDERS: ATTEND Nurse Practitioner Family
DX: M79.1 Myalgia (principal); M96.1 Postlaminectomy syndrome, not elsewhere classified; R25.2 Cramp and spasm; Z79.891 Long term (current) use of opiate analgesic; Z79.899 Other long term (current) drug therapy; F17.210 Nicotine dependence, cigarettes, uncomplicated; J30.81 Allergic rhinitis due to animal (cat) (dog) hair and dander

== ENCOUNTER → 2017-08-01 | Outpatient (CLI) | payer OTHER ==
--- NOTE | 2017-08-22 01:43 | ECWPNPC ---
PATIENT NAME: RADHA RODRÍGUEZ : 1980 GENDER: FEMALE VISIT DATE: 08/01/2017 DISCHARGE DATE: 08/01/17 1405 VISIT LOCKED DATE TIME: PHYSICIAN: VALENCIA FRANKLIN RESOURCE: VALENCIA FRANKLIN REASON FOR APPOINTMENT 1. BACK HISTORY OF PRESENT ILLNESS HISTORY OF PRESENT ILLNESS: PAIN THE PATIENT DESCRIBES THE PAIN... FALL RISK SCREENING: SCREENING :NO FALLS IN THE PAST YEAR TODAY'S VISIT: NOTES: RATES PAIN TODAY 8/10 . NOTES PAIN IS CENTERED ACROSS THE LOW BACK WITH RADIATION TO LEFT LEG. DESCRIBES PAIN ACHING, SHARP, STABBING, TENDER THROBBING SHOOTING AND IS CONSTANT. . CURRENT MEDICATIONS TAKING MULTIVITAMIN ADULT - TABLET 1 TABLET ORALLY DAILY TAKING ACETAMINOPHEN 500 MG CAPSULE 2 CAPSULES NEEDED ORALLY EVERY 6 HRS TAKING BACLOFEN 10 MG TABLET 1 TABLET WITH FOOD OR MILK ORALLY THREE TIMES A DAY NEEDED TAKING CYMBALTA 60 MG CAPSULE DELAYED RELEASE PARTICLES 1 CAPSULE ORALLY ONCE A DAY TAKING MELOXICAM 15 MG TABLET 1 TABLET ORALLY BEFORE BEDTIME TAKING NORCO 10-325 MG TABLET 1 TABLET NEEDED ORALLY EVERY 6-8 HOURS PRN PAIN MDD=3 TAKING TRAMADOL HCL 50 MG TABLET 1-2 TABLET NEEDED ORALLY EVERY 4- 6 HRS PRN PAIN MDD=5 PAST MEDICAL HISTORY HEART MURMUR A CHILD HEAD INJURY A CHILD BACK AND NECK PAIN ARTHRITIS SEVERE WEAKNESS LEFT LEG AT TIMES ALLERGIES ANIMAL FUR: HIVES: ALLERGY REVIEW OF SYSTEMS REVIEWED BY: PROVIDER: VALENCIA FRANKLIN SENIOR CONSTRUCTION ESTIMATOR . CONSTITUTIONAL: ANY CHANGE IN YOUR MEDICAL CONDITION? NO . CHILLS NO . FEVER NO . INFECTION: DO YOU HAVE NEW INFECTIONS? NO . DO YOU HAVE HISTORY OF MRSA? NO . MUSCULOSKELETAL: ANY NEW PATTERNS OF PAIN OR NUMBNESS? NO . GASTROENTEROLOGY: ANY NEW CHANGE IN BOWEL CONTROL? NO . GENITOURINARY: ANY NEW CHANGE IN BLADDER CONTROL? NO . IS THERE A CHANCE YOU COULD BE ? NO . HEMATOLOGY/LYMPH: DO YOU TAKE ANY BLOOD THINNERS? (FOR EXAMPLE- COUMADIN, PLAVIX, AGGRENOX, PLATEL, PRADAXA, OR XARELTO) NO . WHEN WAS YOUR LAST DOSE? DATE: TIME: . NEUROLOGY: HAVE YOU FALLEN IN THE PAST 6 MONTHS? NO . ANY NEW EXTREMITY NUMBNESS OR WEAKNESS? NO . CARDIOLOGY: DO YOU HAVE A PACEMAKER OR DEFIBRILLATOR? NO . RESPIRATORY: HAVE YOU BEEN SICK IN THE PAST WEEK? NO . FEVER NO . FLU LIKE SYMPTOMS? NO . COUGH NO . INTEGUMENTARY: DO YOU HAVE ANY RASHES OR OPEN SORES? NO . ALLERGIC/IMMUNO: ARE YOU ALLERGIC TO SHELLFISH OR IV DYE? NO . ANY NEW ALLERGIES? NO . PSYCHIATRIC: DO YOU HAVE THOUGHTS OF HURTING YOURSELF OR SOMEONE ELSE? NO . ARE YOU ABUSED, NEGLECTED, OR IN AN UNSAFE ENVIRONMENT? NO . ENDOCRINOLOGY: ARE YOU DIABETIC? NO . OTHER: DO YOU NEED ANY PRESCRIPTIONS? NO . IF YES, PLEASE LIST: ____ . ANY NEW PROBLEMS WITH YOUR MEDICATIONS? NO . WHEN DID YOU LAST EAT? ____ . WHEN DID YOU LAST DRINK? ____ . WHAT DID YOU LAST DRINK? ____ . NAME OF PERSON DRIVING YOU HOME? ____ . DO YOU HAVE ANY OTHER QUESTIONS OR CONCERNS NO . VITAL SIGNS WT 140 LBS, HT 67", BMI 21.92 INDEX, BP 123/86 MM HG, HR 105 /MIN, RR 16 /MIN, OXYGEN SAT % 98, REVIEWED BY: NL. EXAMINATION GENERAL EXAMINATION: PSYCHALERT , ORIENTED X 3 , APPROPRIATE MOOD AND AFFECT . LUNGS:CLEAR TO AUSCULTATION BILATERALLY. HEART:HEART RATE REGULAR. MUSCULOSKELETAL:TRIGGER POINTS AND TIGHT FIBROUS BANDS IDENTIFIED OVER LUMBAR PARAVERTEBRAL MUSCLES AND INTO SACRUM LEFT SIDE, POINT TENDERNESS OVER LEFT SIJ . POSITIVE LOU SIGN LEFT.. ASSESSMENTS MYALGIA - M79.1 (PRIMARY) LUMBAR POST-LAMINECTOMY SYNDROME - M96.1 SPASTICITY - R25.2 TREATMENT MYALGIA START CYMBALTA CAPSULE DELAYED RELEASE PARTICLES, 30 MG, 1 CAPSULE, ORALLY, DAILY TDD=90 MG, 30 DAY(S), 30, REFILLS 5 START PERCOCET TABLET, 5-325 MG, 1 TABLET NEEDED, ORALLY, EVERY 6 HRS PRN PAIN MDD=3, 30 DAY(S), 75, REFILLS 0 REFILL CYMBALTA CAPSULE DELAYED RELEASE PARTICLES, 60 MG, 1 CAPSULE, ORALLY, ONCE A DAY TDD=90 MG, 30 DAY(S), 30 CAPSULE, REFILLS 5 INJECTION ANESTHETIC SACROILIAC JOINTVALENCIA FRANKLIN 08/01/2017 1:46:52 PM > LEFT NOTES: WILL DISCUSS TRIGGER POINTS AT NEXT VISIT, RISKS AND BENEFITS OF NARCOTIC/OPIOD MEDICATIONS WERE REVIEWED WITH PATIENT - THIS INCLUDES BUT IS NOT LIMITED TO RISK OF DEPENDANCE/DEVELOPMENT OF ADDICTION, MOOD DISTURBANCE AND DEPRESSION, OSTEOPOROSIS, HORMONAL AND LABIDAL CHANGES, RESPIRATORY DEPRESSION AND . PATIENT IS ADVISED NOT TO DRIVE WHILE ON THESE MEDICATIONS. CLINICAL NOTES: ISTOP REGISTRY REVIEWED AND DEMNOSTRATES COMPLLIANCE. (#[id number]). PREVENTIVE MEDICINE DISCUSSED PREPROCEDURE CARE AND THE INJECTION ITSELF/ PT EXPRESSED UNDERSTANDING. PROCEDURE CODES FA211 ESTABILISHED PATIENT [facility] FACILITY CHARGE DISPOSITION & COMMUNICATION FOLLOW UP AFTER INJECTION (REASON: CHECK AUTH LEFT SIJ) ELECTRONICALLY SIGNED BY SAVAGE HAIRSTON ON 08/21/2017 AT 08:30 AM EDT DISCLAIMER : THIS IS A VISIT SUMMARY EXTRACTED FROM THE [employer] CHART. IT IS NOT A COPY OF THE [employer] PROGRESS NOTE. MATTHEW
== END ==
LOC: M PAIN 13:00
PROVIDERS: ATTEND Nurse Practitioner Family
DX: M96.1 Postlaminectomy syndrome, not elsewhere classified (principal); R25.2 Cramp and spasm; M79.1 Myalgia; M19.90 Unspecified osteoarthritis, unspecified site; L23.81 Allergic contact dermatitis due to animal (cat) (dog) dander; Z79.899 Other long term (current) drug therapy

== ENCOUNTER → 2017-11-15 | Outpatient (CLI) | payer OTHER ==
[~2017-11-15] MED LIST changes: -BUPIVACAINE HCL 0.25% 10 ML VIAL As Ordered ONE; +BUPIVACAINE HCL 0.25% 30 ML VIAL As Ordered; -BUPIVACAINE HCL 0.25% 30 ML VIAL As Ordered ONE; +ISOVUE-M 300 61% 15ML VIAL (Q9967) As Ordered; +LIDOCAINE 1% SDV INJ 30 ML VIAL As Ordered; +TRIAMCINOLONE ACETONIDE SUSP 40 MG/ML VIAL (J3301) As Ordered; -TRIAMCINOLONE ACETONIDE SUSP 40 MG/ML VIAL (J3301) As Ordered ONE; +diazePAM 5 MG TAB As Ordered; -diazePAM 5 MG TAB As Ordered ONE; +oxyCODONE 5MG TAB As Ordered; -oxyCODONE 5MG TAB As Ordered ONE
== END ==
LOC: M PAIN 10:00
DX: G89.29 Other chronic pain (principal); M46.1 Sacroiliitis, not elsewhere classified; M53.88 Other specified dorsopathies, sacral and sacrococcygeal region; M19.90 Unspecified osteoarthritis, unspecified site; F17.200 Nicotine dependence, unspecified, uncomplicated; J30.81 Allergic rhinitis due to animal (cat) (dog) hair and dander; Z91.048 Other nonmedicinal substance allergy status; Z79.891 Long term (current) use of opiate analgesic; Z79.899 Other long term (current) drug therapy
CPT/HCPCS: J3301

== ENCOUNTER → 2017-12-19 | Outpatient (CLI) | payer OTHER | LOC: M PAIN 14:15 | DX: M46.1 Sacroiliitis, not elsewhere classified (principal); M79.1 Myalgia; M19.90 Unspecified osteoarthritis, unspecified site; F17.200 Nicotine dependence, unspecified, uncomplicated; J30.81 Allergic rhinitis due to animal (cat) (dog) hair and dander; Z79.899 Other long term (current) drug therapy; Z91.048 Other nonmedicinal substance allergy status | CPT/HCPCS: G0463 ==

== ENCOUNTER → 2017-12-28 | Outpatient (REF) | payer OTHER | LOC: M LAB REF 18:35 | DX: Z12.4 Encounter for screening for malignant neoplasm of cervix (principal) ==

== ENCOUNTER → 2018-03-11 | Outpatient (CLI) | payer OTHER | LOC: M PAIN 11:00 | DX: G89.29 Other chronic pain (principal); M46.1 Sacroiliitis, not elsewhere classified; M53.88 Other specified dorsopathies, sacral and sacrococcygeal region; M19.90 Unspecified osteoarthritis, unspecified site; F17.200 Nicotine dependence, unspecified, uncomplicated; J30.81 Allergic rhinitis due to animal (cat) (dog) hair and dander; J30.89 Other allergic rhinitis; Z79.899 Other long term (current) drug therapy | CPT/HCPCS: J3301 ==

== ENCOUNTER → 2018-04-01 | Outpatient (CLI) | payer OTHER | LOC: M PAIN 13:30 | DX: M46.1 Sacroiliitis, not elsewhere classified (principal); M19.90 Unspecified osteoarthritis, unspecified site; F17.210 Nicotine dependence, cigarettes, uncomplicated; J30.81 Allergic rhinitis due to animal (cat) (dog) hair and dander; Z79.899 Other long term (current) drug therapy; Z91.09 Other allergy status, other than to drugs and biological substances | CPT/HCPCS: G0463 ==

== ENCOUNTER → 2018-06-03 | Outpatient (CLI) | payer OTHER ==
[~2018-06-03] MED LIST changes: -diazePAM 5 MG TAB As Ordered; -oxyCODONE 5MG TAB As Ordered
== END ==
LOC: M PAIN 14:00
DX: M46.1 Sacroiliitis, not elsewhere classified (principal); M79.1 Myalgia; M19.90 Unspecified osteoarthritis, unspecified site; F17.200 Nicotine dependence, unspecified, uncomplicated; J30.81 Allergic rhinitis due to animal (cat) (dog) hair and dander; J30.89 Other allergic rhinitis; Z79.899 Other long term (current) drug therapy; Z87.820 Personal history of traumatic brain injury
CPT/HCPCS: G0463

== ENCOUNTER → 2018-10-04 | Outpatient (CLI) | payer OTHER | LOC: M PAIN 13:00 | DX: M79.18 Myalgia, other site (principal); M46.1 Sacroiliitis, not elsewhere classified; R25.2 Cramp and spasm; F17.210 Nicotine dependence, cigarettes, uncomplicated; J30.81 Allergic rhinitis due to animal (cat) (dog) hair and dander; Z79.891 Long term (current) use of opiate analgesic; Z98.1 Arthrodesis status; Z79.899 Other long term (current) drug therapy; Z91.048 Other nonmedicinal substance allergy status | CPT/HCPCS: G0463 ==

== ENCOUNTER → 2018-12-12 | Outpatient (REF) | payer SELFPAY | LOC: M LABSMT 12:52 | PROVIDERS: ATTEND Advanced Practice Midwife | DX: O03.9 Complete or unspecified spontaneous abortion without complication (principal) ==

== ENCOUNTER → 2019-01-10 | Outpatient (CLI) | payer OTHER | LOC: M SMT 14:00 | PROVIDERS: ATTEND Advanced Practice Midwife | DX: O02.1 Missed abortion (principal) ==

== ENCOUNTER → 2019-01-16 | Outpatient (CLI) | payer OTHER | LOC: M SMT 14:57 | PROVIDERS: ATTEND Advanced Practice Midwife | DX: O02.1 Missed abortion (principal) ==

== ENCOUNTER → 2019-02-03 | Outpatient (CLI) | payer OTHER ==
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
== END ==
LOC: M PAIN 13:30
PROVIDERS: ATTEND Nurse Practitioner Family
DX: M46.1 Sacroiliitis, not elsewhere classified (principal); M96.1 Postlaminectomy syndrome, not elsewhere classified; M19.90 Unspecified osteoarthritis, unspecified site; Z91.09 Other allergy status, other than to drugs and biological substances; Z72.0 Tobacco use; Z79.899 Other long term (current) drug therapy

== ENCOUNTER → 2019-02-28 | Outpatient (CLI) | payer OTHER ==
--- NOTE | 2019-03-18 02:32 | ECWPNPC ---
PATIENT NAME: RADHA RODRÍGUEZ : 1980 GENDER: FEMALE VISIT DATE: 02/28/2019 DISCHARGE DATE: 02/28/19 1613 VISIT LOCKED DATE TIME: PHYSICIAN: DEE DEE LINDSEY RESOURCE: DEE DEE LINDSEY DISCLAIMER : THIS IS A VISIT SUMMARY EXTRACTED FROM THE [facility]. IT IS NOT A COPY OF THE [employer] PROGRESS NOTE. MATTHEW
== END ==
LOC: M PAIN 14:45
PROVIDERS: ATTEND Nurse Practitioner Family
DX: M46.1 Sacroiliitis, not elsewhere classified (principal); M96.1 Postlaminectomy syndrome, not elsewhere classified; M19.90 Unspecified osteoarthritis, unspecified site; F17.210 Nicotine dependence, cigarettes, uncomplicated; Z91.09 Other allergy status, other than to drugs and biological substances; Z79.1 Long term (current) use of non-steroidal anti-inflammatories (NSAID); Z79.899 Other long term (current) drug therapy

== ENCOUNTER → 2019-04-03 | Outpatient (CLI) | payer OTHER ==
--- NOTE | 2019-04-23 01:14 | ECWPNPC ---
PATIENT NAME: RADHA RODRÍGUEZ : 1980 GENDER: FEMALE VISIT DATE: 04/03/2019 DISCHARGE DATE: 04/03/19 1438 VISIT LOCKED DATE TIME: PHYSICIAN: DEE DEE LINDSEY RESOURCE: DEE DEE LINDSEY REASON FOR APPOINTMENT 1. BACK PAIN HISTORY OF PRESENT ILLNESS HISTORY OF PRESENT ILLNESS: HERE FOR F/U OF CHRONIC GENERALIZED BACK PAIN.HAD SPINAL CRUSH INJURY AT AGE 14 WITH SUBSEQUENT LUMBAR FUSION/HARDWARE.HAS HAD CHRONIC PAIN EVER SINCE.HAS TRIALED MULTIPLE MEDICATIONS BOTH OPIOD AND NON OPIOD OVER THE YEARS.CURRENTLY USING OXYCODONE 5/325 AND TRAMADOL.PAIN LEVEL REMAINS AT 8/10 DESPITE CURRENT REGIMEN. PAIN THE PATIENT DESCRIBES THE PAIN... FALL RISK SCREENING: SCREENING :NO FALLS REPORTED IN THE LAST YEAR CURRENT MEDICATIONS TAKING MULTIVITAMIN ADULT - TABLET 1 TABLET ORALLY DAILY TAKING TIZANIDINE HCL 4 MG TABLET 1/2 TO 1 TABLET NEEDED ORALLY THREE TIMES A DAY TAKING ACETAMINOPHEN 500 MG CAPSULE 2 CAPSULES NEEDED ORALLY EVERY 6 HRS TAKING BACLOFEN 10 MG TABLET 1 TABLET WITH FOOD OR MILK ORALLY THREE TIMES A DAY NEEDED, NOTES: INSURANCE WILL NOT COVER TAKING MELOXICAM 15 MG TABLET 1 TABLET ORALLY BEFORE BEDTIME TAKING CARISOPRODOL 350 MG TABLET 1 TABLET NEEDED ORALLY BEFORE BEDTIME PRN MDD1 #25 TAB SHOULD LAST 30 DAYS TAKING PERCOCET 5-325 MG TABLET 1 TABLET NEEDED ORALLY Q6H PRN PAIN MDD4 #75 TAB SHOULD LAST 30 DAYS TAKING TRAMADOL HCL 50 MG TABLET 1-2 TABLET NEEDED ORALLY Q6H PRN MDD6 #130 TAB SHOULD LAST 30 DAYS MEDICATION LIST REVIEWED AND RECONCILED WITH THE PATIENT PAST MEDICAL HISTORY HEART MURMUR A CHILD HEAD INJURY A CHILD BACK AND NECK PAIN ARTHRITIS SEVERE WEAKNESS LEFT LEG AT TIMES ALLERGIES ANIMAL FUR: HIVES - ALLERGY PERFUME: SNEEZING - ALLERGY SURGICAL HISTORY SPINAL FUSION L2-L4 1993 FAMILY HISTORY FATHER: ALIVE MOTHER: ALIVE 1 SISTER(S) - HEALTHY. SOCIAL HISTORY GENERAL: TOBACCO USE ARE YOU A:CURRENT SMOKER ARE YOU INTERESTED IN QUITTING?THINKING ABOUT QUITTING IS USING VAPE TO HELP HER QUIT PREVIOUS QUIT ATTEMPTS?NO. COUNSELED THE PATIENT ON SMOKING CESSATION, EDUCATION [id number]/2019 HOW MANY CIGARETTES A DAY DO YOU SMOKE?11-20 HOW SOON AFTER YOU WAKE UP DO YOU SMOKE YOUR FIRST CIGARETTE?WITHIN 5 MIN HOW OFTEN DO YOU SMOKE CIGARETTES?EVERY DAY PATIENT COUNSELED ON THE DANGERS OF TOBACCO USE AND URGED TO QUIT:04/03/2019 OTHERS AT HOME: OTHER NON-RELATIVE. DIET: REGULAR. LANGUAGE LANGUAGES SPOKEN:MALIAN RECREATIONAL DRUG USE DRUG USE? NO , PATIENT DENIES ABUSE OR MISSUSED OF ANY MEDICATION . , PATIENT DENIES USE OF ANY ILLEGAL SUBSTANCE INCLUDING MARIJUANA OR COCAINE .. 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 LEARNING BARRIERS / SPECIAL NEEDS BARRIERS TO LEARNING?NO HEARING IMPAIRED?NO VISION IMPAIRED?NO COGNITIVELY IMPAIRED?NO READINESS TO LEARN?YES LEARNING PREFERENCES?NO LEARNING CAPABILITIES PRESENT?YES EMOTIONAL BARRIERS?NO PAIN CLINIC PFS, CLERGY, PUBLIC HEALTH REFERRALS PFS REFERRAL NEEDED?NO CLERGY REFERRAL NEEDED?NO PUBLIC HEALTH REFERRAL NEEDED?NO HAS THE PATIENT BEEN EDUCATED REGARDING HIS/HER PLAN OF CARE?YES HAS THE PATIENT BEEN EDUCATED REGARDING PAIN, THE RISK FOR PAIN, THE IMPORTANCE OF EFFECTIVE PAIN MANAGEMENT, AND THE PAIN ASSESSMENT PROCESS?YES LATEX QUESTIONNAIRE LATEX ALLERGY : HAVE YOU EVER DEVELOPED ANY TYPE OF REACTION AFTER HANDLING LATEX PRODUCTS SUCH RUBBER GLOVES, CONDOMS, DIAPHRAGMS, BALLOONS, SOCKS, OR UNDERWEAR?NO LATEX ALLERGY : HAVE YOU EVER DEVELOPED ANY TYPE OF REACTION DURING OR AFTER DENTAL APPOINTMENT, VAGINAL/RECTAL EXAMINATION, SURGICAL PROCEDURE, OR ANY OTHER EXPOSURE?NO LATEX RISK : HAVE YOU EVER HAD ANY DIFFICULTY BREATHING OR HIVES AFTER EATING OR HANDLING ANY FRUITS, OR VEGETABLES; SUCH KIWI, BANANAS, STONE FRUITS, OR CHESTNUTSNO LATEX RISK : DO YOU HAVE A PREVIOUS PERSONAL HISTORY OF MORE THAN NINE SURGERIES, SPINA BIFIDA, OR REPEATED CATHERTIZATIONS? NO LATEX RISK : ARE YOU FREQUENTLY EXPOSED TO LATEX PRODUCTS IN YOUR OCCUPATION?NO DATE ASKED : 02/28/2019 CAFFEINE CAFFEINE USE? NO 2-3 CUPS COFFEE PER DAY. ADVANCE DIRECTIVE ADVANCE DIRECTIVE DISCUSSED WITH PATIENT:YES PT DECLINES INFORMATION OR ASSISTANCE AT THIS TIME WORSHIP [id number] OTHER MARITAL STATUS: SINGLE. 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 REVIEWED WITH PT 04/03/19 1400 LAS. HOSPITALIZATION/MAJOR DIAGNOSTIC PROCEDURE SURGERY 1993 REVIEW OF SYSTEMS REVIEWED BY: PROVIDER: DEE DEE SANTO . CONSTITUTIONAL: ANY CHANGE IN YOUR MEDICAL CONDITION? NO . CHILLS NO . FEVER NO . INFECTION: DO YOU HAVE NEW INFECTIONS? NO . DO YOU HAVE HISTORY OF MRSA? NO . MUSCULOSKELETAL: ANY NEW PATTERNS OF PAIN OR NUMBNESS? NO . GASTROENTEROLOGY: ANY NEW CHANGE IN BOWEL CONTROL? NO . GENITOURINARY: ANY NEW CHANGE IN BLADDER CONTROL? NO . IS THERE A CHANCE YOU COULD BE ? NO . HEMATOLOGY/LYMPH: DO YOU TAKE ANY BLOOD THINNERS? (FOR EXAMPLE- COUMADIN, PLAVIX, AGGRENOX, PLATEL, PRADAXA, OR XARELTO) NO . WHEN WAS YOUR LAST DOSE? DATE: TIME: . NEUROLOGY: HAVE YOU FALLEN IN THE PAST 12 MONTHS? YES PT REPORTS SHE SLIPPED ON THE ICE AND FELL LAST WINTER. . ANY NEW EXTREMITY NUMBNESS OR WEAKNESS? NO . CARDIOLOGY: DO YOU HAVE A PACEMAKER OR DEFIBRILLATOR? NO . RESPIRATORY: HAVE YOU BEEN SICK IN THE PAST WEEK? NO . FEVER NO . FLU LIKE SYMPTOMS? NO . COUGH NO . INTEGUMENTARY: DO YOU HAVE ANY RASHES OR OPEN SORES? NO . ALLERGIC/IMMUNO: ARE YOU ALLERGIC TO IV DYE? NO . ANY NEW ALLERGIES? NO . PSYCHIATRIC: DO YOU HAVE THOUGHTS OF HURTING YOURSELF OR SOMEONE ELSE? NO . ARE YOU ABUSED, NEGLECTED, OR IN AN UNSAFE ENVIRONMENT? NO . ENDOCRINOLOGY: ARE YOU DIABETIC? NO . OTHER: DO YOU NEED ANY PRESCRIPTIONS? NO . IF YES, PLEASE LIST: ____ . ANY NEW PROBLEMS WITH YOUR MEDICATIONS? NO . WHEN DID YOU LAST EAT? ____ . WHEN DID YOU LAST DRINK? ____ . WHAT DID YOU LAST DRINK? ____ . NAME OF PERSON DRIVING YOU HOME? ____ . DO YOU HAVE ANY OTHER QUESTIONS OR CONCERNS NO . VITAL SIGNS WT 154.8 LBS, HT 67", BMI 24.24 INDEX, BP 136/83 MM HG, HR 94 /MIN, RR 16 /MIN, TEMP 98.9 F, OXYGEN SAT % 100%, SAFE IN ENV? (Y/N) YES, NA INITIALS SC 14:00, REVIEWED BY: RALEIGH. EXAMINATION GENERAL EXAMINATION: GENERAL APPEARANCE:AWAKE,ALERT ,PLEAASANT . PSYCHAFFECT NORMAL . LUNGS:LUNG ELIZONDO ARE CLEAR TO AUSCULTATION BILATERALLY. GOOD MOVEMENT OF AIR . HEART:S1, S2 IN A REGULAR RATE AND RHYTHM. NO SIGNIFICANT MURMURS, RUBS OR GALLOPS NOTED . ASSESSMENTS SACROILIITIS, NOT ELSEWHERE CLASSIFIED - M46.1 (PRIMARY) LUMBAR POST-LAMINECTOMY SYNDROME - M96.1 TREATMENT SACROILIITIS, NOT ELSEWHERE CLASSIFIED START BELBUCA 300 MCG FILM, 300 MCG, 1 FILM, BUCCAL, Q12H MDD2, 30 DAY(S), 60, REFILLS 2 NOTES: ISTOP REGISTRY REVIEWED AND DEMONSTRATES COMPLLIANCE. (REF # [id number] ) BRINGS IN MEDICATIONS WHICH IS APPROPRIATE FOR WHAT WAS DISPENSED. RECENT URINE TOXICOLOGY REVIEWED. NO UNAUTHORIZED MEDICATIONS. NO ILLICIT SUBSTANCES AND PRESCRIBED MEDICATIONS WERE PRESENT. URINE TOX TODAY, [facility] NARCOTIC AGREEMENT WAS UPDATED REVIEWED AND SIGNED TODAY BY THE PATIENT. SEE ATTACHED DOCUMENT FOR FULL DETAILS; SPECIFIC ISSUES WERE REVIEWED: 1) KEEP PAIN MEDS IN THEIR ORIGINAL BOTTLES AND ANY WEEKLY PLANNERS ARE TO BE BROUGHT TO THE PAIN CENTER AT EVERY VISIT. 2) THE PATIENT IS NOT TO INCREASE DOSING OR TIMING OF THEIR PAIN MEDICATION WITHOUT SPECIFIC DIRECTION OF THEIR PAIN CENTERPROVIDER (NOT ER OR OTHER PROVIDERS). 3) ALL PAIN MEDS ARE TO BE KEPT SECURED, IN A LOCKED BOX. 4) NO PAIN MEDS ARE TO BE SHARED WITH ANY OTHER PERSON FOR ANY REASON. 5) NO PAIN MEDS MAY BE TAKEN FROM ANY FRIENDS OR RELATIVES FOR ANY REASON 6) NO MEDS OR SUBSTANCES WHICH ARE NOT LEGAL ARE TO BE USED- NO MARIJUANA, NO COCAINE, AMPHETAMINES, HEROIN, OR OTHERS ARE EVER TO BE USED. 7)URINE TESTING IS DONE TO ACCOUNT FOR MEDS AND SUBSTANCES BEING TAKEN AND WILL BE DONE RANDOMLY., RISKS AND BENEFITS OF NARCOTIC/OPIOD MEDICATIONS WERE REVIEWED WITH PATIENT - THIS INCLUDES BUT IS NOT LIMITED TO RISK OF DEPENDANCE/DEVELOPMENT OF ADDICTION, MOOD DISTURBANCE AND DEPRESSION, OSTEOPOROSIS, HORMONAL AND LABIDAL CHANGES, RESPIRATORY DEPRESSION AND . PATIENT IS ADVISED NOT TO DRIVE OR DRINK ALCOHOL WHILE ON THESE MEDICATIONS, DUE TO PATIENT''S HISTORY OF AROUND THE CLOCK CHRONIC UNCONTROLLED PAIN IT IS MEDICALLY NECESSARY TO USE A LONG ACTING PAIN MEDICATION. WE ARE TRYING TO LIMIT TOTAL MORPHINE MILLEQUIVALENTS, NUMBER OF PRESCRIPTIONS ISSUED AND C II MEDICATIONS PER CLINICAL GUIDELINES AND BELBUCA WOULD BE INDICATED TO MEET THIS CRITERIA. I AM ALSO USING BELBUCA TO MINIMIZE POTENTIAL FOR SIDE EFFECTS ASSOCIATED WITH C II NARCOTICS AND MUSCLE RELAXANTS .DUE TO THE ABOVE REASONS LONG ACTING NARCOTIC PAIN MEDICATION AVAILABLE ON HER FORMULARY IS NOT RECOMMENDED. PREVENTIVE MEDICINE PAIN CLINIC TEACHING: MEDICATIONS TEACHING HANDOUT FOR BELBUCA PRINTED AND REVIEWED WITH PT. 04/03/19 1435 RALEIGH. PROCEDURE CODES FA211 ESTABILISHED PATIENT [facility] CHARGE DISPOSITION & COMMUNICATION FOLLOW UP 2 MONTHS ELECTRONICALLY SIGNED BY DEE DEE SANTO, GAL ON 04/22/2019 AT 06:36 PM EDT DISCLAIMER : THIS IS A VISIT SUMMARY EXTRACTED FROM THE [employer] CHART. IT IS NOT A COPY OF THE [employer] PROGRESS NOTE. MATTHEW
== END ==
LOC: M PAIN 13:45
PROVIDERS: ATTEND Nurse Practitioner Family
DX: M46.1 Sacroiliitis, not elsewhere classified (principal); M96.1 Postlaminectomy syndrome, not elsewhere classified; M19.90 Unspecified osteoarthritis, unspecified site; F17.210 Nicotine dependence, cigarettes, uncomplicated; Z91.09 Other allergy status, other than to drugs and biological substances; Z79.899 Other long term (current) drug therapy

== ENCOUNTER → 2019-06-24 | Outpatient (CLI) | payer MEDICAID, OTHER ==
--- NOTE | 2019-06-26 01:35 | ECWPNPC ---
PATIENT NAME: RADHA RODRÍGUEZ : 1980 GENDER: FEMALE VISIT DATE: 06/24/2019 DISCHARGE DATE: 06/24/19 1451 VISIT LOCKED DATE TIME: PHYSICIAN: KARSTEN JIMENEZ RESOURCE: KARSTEN JIMENEZ REASON FOR APPOINTMENT 1. BACK PAIN HISTORY OF PRESENT ILLNESS HISTORY OF PRESENT ILLNESS: PAIN THE PATIENT DESCRIBES THE PAIN... 38 YEAR OLD FEMALE IN FOR CHRONIC PAIN FOLLOW UP. SHE ADMITS THE MEDICATIONS ARE WORKING WELL. SHE DOES STATE THAT THE BUTRANS INITIALLY CAUSED A HEADACHE BUT THIS HAS SINCE DISSIPATED. SHE RATES HER PAIN AT A 7/10 CURRENTLY AND DESCRIBES IT ACHING, SHARP, STABBING, SHOOTING, SORE, AND TENDER. FALL RISK SCREENING: SCREENING :NO FALLS REPORTED IN THE LAST YEAR CURRENT MEDICATIONS TAKING MULTIVITAMIN ADULT - TABLET 1 TABLET ORALLY DAILY TAKING TIZANIDINE HCL 4 MG TABLET 1/2 TO 1 TABLET NEEDED ORALLY THREE TIMES A DAY TAKING ACETAMINOPHEN 500 MG CAPSULE 2 CAPSULES NEEDED ORALLY EVERY 6 HRS TAKING BACLOFEN 10 MG TABLET 1 TABLET WITH FOOD OR MILK ORALLY THREE TIMES A DAY NEEDED TAKING MELOXICAM 15 MG TABLET 1 TABLET ORALLY BEFORE BEDTIME TAKING BUTRANS 20 MCG/HR PATCH WEEKLY APPLY 1 PATCH TO SKIN TRANSDERMAL Q7 DAYS =MDD TAKING PERCOCET 5-325 MG TABLET 1 TABLET NEEDED ORALLY Q6H PRN PAIN MDD4 #75 TAB SHOULD LAST 30 DAYS TAKING TRAMADOL HCL 50 MG TABLET 1-2 TABLET NEEDED ORALLY Q6H PRN MDD6 #130 TAB SHOULD LAST 30 DAYS TAKING CARISOPRODOL 350 MG TABLET 1 TABLET NEEDED ORALLY BEFORE BEDTIME PRN MDD1 #25 TAB SHOULD LAST 30 DAYS MEDICATION LIST REVIEWED AND RECONCILED WITH THE PATIENT PAST MEDICAL HISTORY HEART MURMUR A CHILD HEAD INJURY A CHILD BACK AND NECK PAIN ARTHRITIS SEVERE WEAKNESS LEFT LEG AT TIMES ALLERGIES ANIMAL FUR: HIVES - ALLERGY PERFUME: SNEEZING - ALLERGY SURGICAL HISTORY SPINAL FUSION L2-L4 1993 FAMILY HISTORY FATHER: ALIVE MOTHER: ALIVE 1 SISTER(S) - HEALTHY. SOCIAL HISTORY GENERAL: TOBACCO USE ARE YOU A:CURRENT SMOKER ARE YOU INTERESTED IN QUITTING?THINKING ABOUT QUITTING IS USING VAPE TO HELP HER QUIT PREVIOUS QUIT ATTEMPTS?NO. COUNSELED THE PATIENT ON SMOKING CESSATION, EDUCATION [id number]/2019 HOW MANY CIGARETTES A DAY DO YOU SMOKE?11-20 HOW SOON AFTER YOU WAKE UP DO YOU SMOKE YOUR FIRST CIGARETTE?WITHIN 5 MIN HOW OFTEN DO YOU SMOKE CIGARETTES?EVERY DAY PATIENT COUNSELED ON THE DANGERS OF TOBACCO USE AND URGED TO QUIT:04/03/2019 OTHERS AT HOME: OTHER NON-RELATIVE. DIET: REGULAR. LANGUAGE LANGUAGES SPOKEN:YI RECREATIONAL DRUG USE DRUG USE? NO , PATIENT DENIES ABUSE OR MISSUSED OF ANY MEDICATION . , PATIENT DENIES USE OF ANY ILLEGAL SUBSTANCE INCLUDING MARIJUANA OR COCAINE .. 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 LEARNING BARRIERS / SPECIAL NEEDS BARRIERS TO LEARNING?NO HEARING IMPAIRED?NO VISION IMPAIRED?NO COGNITIVELY IMPAIRED?NO READINESS TO LEARN?YES LEARNING PREFERENCES?NO LEARNING CAPABILITIES PRESENT?YES EMOTIONAL BARRIERS?NO PAIN CLINIC PFS, CLERGY, PUBLIC HEALTH REFERRALS PFS REFERRAL NEEDED?NO CLERGY REFERRAL NEEDED?NO PUBLIC HEALTH REFERRAL NEEDED?NO HAS THE PATIENT BEEN EDUCATED REGARDING HIS/HER PLAN OF CARE?YES HAS THE PATIENT BEEN EDUCATED REGARDING PAIN, THE RISK FOR PAIN, THE IMPORTANCE OF EFFECTIVE PAIN MANAGEMENT, AND THE PAIN ASSESSMENT PROCESS?YES LATEX QUESTIONNAIRE LATEX ALLERGY : HAVE YOU EVER DEVELOPED ANY TYPE OF REACTION AFTER HANDLING LATEX PRODUCTS SUCH RUBBER GLOVES, CONDOMS, DIAPHRAGMS, BALLOONS, SOCKS, OR UNDERWEAR?NO LATEX ALLERGY : HAVE YOU EVER DEVELOPED ANY TYPE OF REACTION DURING OR AFTER DENTAL APPOINTMENT, VAGINAL/RECTAL EXAMINATION, SURGICAL PROCEDURE, OR ANY OTHER EXPOSURE?NO LATEX RISK : HAVE YOU EVER HAD ANY DIFFICULTY BREATHING OR HIVES AFTER EATING OR HANDLING ANY FRUITS, OR VEGETABLES; SUCH KIWI, BANANAS, STONE FRUITS, OR CHESTNUTSNO LATEX RISK : DO YOU HAVE A PREVIOUS PERSONAL HISTORY OF MORE THAN NINE SURGERIES, SPINA BIFIDA, OR REPEATED CATHERIZATIONS? NO LATEX RISK : ARE YOU FREQUENTLY EXPOSED TO LATEX PRODUCTS IN YOUR OCCUPATION?NO DATE ASKED : 02/28/2019 CAFFEINE CAFFEINE USE? NO 2-3 CUPS COFFEE PER DAY. ADVANCE DIRECTIVE ADVANCE DIRECTIVE DISCUSSED WITH PATIENT:YES PT DECLINES INFORMATION OR ASSISTANCE AT THIS TIME MORMONISM [id number] OTHER MARITAL STATUS: SINGLE. 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 HOSPITALIZATION/MAJOR DIAGNOSTIC PROCEDURE SURGERY 1993 REVIEW OF SYSTEMS REVIEWED BY: PROVIDER: CONCHITA WAN . CONSTITUTIONAL: ANY CHANGE IN YOUR MEDICAL CONDITION? NO . CHILLS NO . FEVER NO . INFECTION: DO YOU HAVE NEW INFECTIONS? NO . DO YOU HAVE HISTORY OF MRSA? NO . MUSCULOSKELETAL: ANY NEW PATTERNS OF PAIN OR NUMBNESS? NO-PAIN REMIANS AND IS CONSTANT . GASTROENTEROLOGY: ANY NEW CHANGE IN BOWEL CONTROL? NO . GENITOURINARY: ANY NEW CHANGE IN BLADDER CONTROL? NO . IS THERE A CHANCE YOU COULD BE ? NO . HEMATOLOGY/LYMPH: DO YOU TAKE ANY BLOOD THINNERS? (FOR EXAMPLE- COUMADIN, PLAVIX, AGGRENOX, PLATEL, PRADAXA, OR XARELTO) NO . WHEN WAS YOUR LAST DOSE? DATE: TIME: . NEUROLOGY: HAVE YOU FALLEN IN THE PAST 12 MONTHS? YES- BACK SPASM RECENTLY THAT MADE HER "DROP TO HER KNEES" . ANY NEW EXTREMITY NUMBNESS OR WEAKNESS? NO . CARDIOLOGY: DO YOU HAVE A PACEMAKER OR DEFIBRILLATOR? NO . RESPIRATORY: HAVE YOU BEEN SICK IN THE PAST WEEK? NO . FEVER NO . FLU LIKE SYMPTOMS? NO . COUGH NO . INTEGUMENTARY: DO YOU HAVE ANY RASHES OR OPEN SORES? NO . ALLERGIC/IMMUNO: ARE YOU ALLERGIC TO IV DYE? NO . ANY NEW ALLERGIES? NO . PSYCHIATRIC: DO YOU HAVE THOUGHTS OF HURTING YOURSELF OR SOMEONE ELSE? NO . ARE YOU ABUSED, NEGLECTED, OR IN AN UNSAFE ENVIRONMENT? NO . ENDOCRINOLOGY: ARE YOU DIABETIC? NO . OTHER: DO YOU NEED ANY PRESCRIPTIONS? YES- NEEDS MELOXICAM REFILLED . IF YES, PLEASE LIST: ____ . ANY NEW PROBLEMS WITH YOUR MEDICATIONS? NO . WHEN DID YOU LAST EAT? ____ . WHEN DID YOU LAST DRINK? ____ . WHAT DID YOU LAST DRINK? ____ . NAME OF PERSON DRIVING YOU HOME? ____ . DO YOU HAVE ANY OTHER QUESTIONS OR CONCERNS NO . VITAL SIGNS WT 147.8 LBS, HT 67", BMI 23.15 INDEX, BP 135/81 MM HG, HR 84 /MIN, RR 16 /MIN, TEMP 96.7 F, OXYGEN SAT % 100%, NA INITIALS AW 1413. EXAMINATION GENERAL EXAMINATION: GENERALNO ACUTE DISTRESS, WELL NOURISHED AND HYDRATED. PSYCHAPPROPRIATE MOOD AND AFFECT . LUNGS:CLEAR TO AUSCULTATION BILATERALLY, NO WHEEZES, RHONCHI, RALES. HEART:NO MURMURS, REGULAR RATE AND RHYTHM. ASSESSMENTS LUMBAR POST-LAMINECTOMY SYNDROME - M96.1 (PRIMARY) TREATMENT LUMBAR POST-LAMINECTOMY SYNDROME CLINICAL NOTES: 38 YEAR OLD FEMALE IN FOR CHRONIC PAIN FOLLOW UP. GIVEN PRESENTING SYMPTOMS AND RESULTS OF PHYSICAL EXAMINATION RECOMMENDED CONTINUATION OF CURRENT MEDICATION REGIMEN WITH FOLLOW UP IN 3 MONTHS. PATIENT HAS EXPRESSED UNDERSTANDING OF AND WAS IN AGREEMENT WITH TREATMENT PLAN. GIVEN TIME TO ASK QUESTIONS AND EXPRESS CONCERNS. , ISTOP REGISTRY REVIEWED AND DEMONSTRATES COMPLLIANCE. (REF # [id number] ) BRINGS IN MEDICATIONS WHICH IS APPROPRIATE FOR WHAT WAS DISPENSED. RECENT URINE TOXICOLOGY REVIEWED. NO UNAUTHORIZED MEDICATIONS. NO ILLICIT SUBSTANCES AND PRESCRIBED MEDICATIONS WERE PRESENT. , RISKS AND BENEFITS OF NARCOTIC/OPIOD MEDICATIONS WERE REVIEWED WITH PATIENT - THIS INCLUDES BUT IS NOT LIMITED TO RISK OF DEPENDANCE/DEVELOPMENT OF ADDICTION, MOOD DISTURBANCE AND DEPRESSION, OSTEOPOROSIS, HORMONAL AND LABIDAL CHANGES, RESPIRATORY DEPRESSION AND . PATIENT IS ADVISED NOT TO DRIVE OR DRINK ALCOHOL WHILE ON THESE MEDICATIONS. PROCEDURE CODES FA211 ESTABILISHED PATIENT [facility] CHARGE DISPOSITION & COMMUNICATION FOLLOW UP 3 MONTHS (REASON: CHRONIC PAIN ) ELECTRONICALLY SIGNED BY GAL COSTA ON 06/25/2019 AT 11:37 AM EDT DISCLAIMER : THIS IS A VISIT SUMMARY EXTRACTED FROM THE [employer] CHART. IT IS NOT A COPY OF THE [employer] PROGRESS NOTE. MATTHEW
== END ==
LOC: M PAIN 14:00
PROVIDERS: ATTEND Family Medicine
DX: M96.1 Postlaminectomy syndrome, not elsewhere classified (principal); M54.2 Cervicalgia; Z98.1 Arthrodesis status; F17.210 Nicotine dependence, cigarettes, uncomplicated; Z79.891 Long term (current) use of opiate analgesic; Z79.899 Other long term (current) drug therapy; J30.81 Allergic rhinitis due to animal (cat) (dog) hair and dander; Z91.048 Other nonmedicinal substance allergy status

== ENCOUNTER → 2019-10-28 | Outpatient (CLI) | payer MEDICAID, OTHER ==
--- NOTE | 2019-10-31 02:20 | ECWPNPC ---
PATIENT NAME: RADHA RODRÍGUEZ : 1980 GENDER: FEMALE VISIT DATE: 10/28/2019 DISCHARGE DATE: 10/28/19 1405 VISIT LOCKED DATE TIME: PHYSICIAN: KARSTEN JIMENEZ RESOURCE: KARSTEN JIMENEZ REASON FOR APPOINTMENT 1. CHRONIC PAIN HISTORY OF PRESENT ILLNESS HISTORY OF PRESENT ILLNESS: 39-YEAR-OLD FEMALE IN FOR CHRONIC PAIN FOLLOW-UP. SHE RATES HER PAIN CURRENTLY AT A 7 OUT OF 10 AND DESCRIBES IT ACHING, SHARP, STABBING, SORE, SHOOTING, AND TENDER. SHE FEELS HER MEDICATIONS ARE WORKING WELL AND DENIES MED SIDE EFFECTS AT THIS TIME. SHE DOES ADMIT TO INCREASED MUSCLE SPASMS AND HAS REQUESTED A POTENTIAL INCREASE IN HER MUSCLE RELAXER SHE HAS ALSO REQUESTED TO SWITCH FROM BUTRANS PATCH TO BELBUCA THE PATIENT EXPERIENCES BURNING AND IRRITATION AT THE APPLICATION SITE OF THE PATCH. PAIN THE PATIENT DESCRIBES THE PAIN... FALL RISK SCREENING: SCREENING :NO FALLS REPORTED IN THE LAST YEAR CURRENT MEDICATIONS TAKING MULTIVITAMIN ADULT - TABLET 1 TABLET ORALLY DAILY TAKING TIZANIDINE HCL 4 MG TABLET 1/2 TO 1 TABLET NEEDED ORALLY THREE TIMES A DAY TAKING ACETAMINOPHEN 500 MG CAPSULE 2 CAPSULES NEEDED ORALLY EVERY 6 HRS TAKING MELOXICAM 15 MG TABLET 1 TABLET ORALLY BEFORE BEDTIME TAKING CARISOPRODOL 350 MG TABLET 1 TABLET NEEDED ORALLY BEFORE BEDTIME PRN MDD1 #25 TAB SHOULD LAST 30 DAYS TAKING BUTRANS 20 MCG/HR PATCH WEEKLY APPLY 1 PATCH TO SKIN TRANSDERMAL Q7 DAYS =MDD TAKING PERCOCET 5-325 MG TABLET 1 TABLET NEEDED ORALLY Q6H PRN PAIN MDD4 #75 TAB SHOULD LAST 30 DAYS TAKING TRAMADOL HCL 50 MG TABLET 1-2 TABLET NEEDED ORALLY Q6H PRN MDD6 #130 TAB SHOULD LAST 30 DAYS TAKING BACLOFEN 10 MG TABLET 1 TABLET WITH FOOD OR MILK ORALLY THREE TIMES A DAY NEEDED MEDICATION LIST REVIEWED AND RECONCILED WITH THE PATIENT PAST MEDICAL HISTORY HEART MURMUR A CHILD HEAD INJURY A CHILD BACK AND NECK PAIN ARTHRITIS SEVERE WEAKNESS LEFT LEG AT TIMES ALLERGIES ANIMAL FUR: HIVES - ALLERGY PERFUME: SNEEZING - ALLERGY SURGICAL HISTORY SPINAL FUSION L2-L4 1993 FAMILY HISTORY FATHER: ALIVE MOTHER: ALIVE 1 SISTER(S) - HEALTHY. SOCIAL HISTORY GENERAL: TOBACCO USE ARE YOU A:CURRENT SMOKER ARE YOU INTERESTED IN QUITTING?THINKING ABOUT QUITTING IS USING VAPE TO HELP HER QUIT PREVIOUS QUIT ATTEMPTS?NO. COUNSELED THE PATIENT ON SMOKING CESSATION, EDUCATION [id number]/03/2019 HOW MANY CIGARETTES A DAY DO YOU SMOKE?11-20 HOW SOON AFTER YOU WAKE UP DO YOU SMOKE YOUR FIRST CIGARETTE?WITHIN 5 MIN HOW OFTEN DO YOU SMOKE CIGARETTES?EVERY DAY PATIENT COUNSELED ON THE DANGERS OF TOBACCO USE AND URGED TO QUIT:04/03/2019 OTHERS AT HOME: OTHER NON-RELATIVE. DIET: REGULAR. LANGUAGE LANGUAGES SPOKEN:SYRIAC RECREATIONAL DRUG USE DRUG USE? NO , PATIENT DENIES ABUSE OR MISSUSED OF ANY MEDICATION . , PATIENT DENIES USE OF ANY ILLEGAL SUBSTANCE INCLUDING MARIJUANA OR COCAINE .. 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 LEARNING BARRIERS / SPECIAL NEEDS BARRIERS TO LEARNING?NO HEARING IMPAIRED?NO VISION IMPAIRED?NO COGNITIVELY IMPAIRED?NO READINESS TO LEARN?YES LEARNING PREFERENCES?NO LEARNING CAPABILITIES PRESENT?YES EMOTIONAL BARRIERS?NO PAIN CLINIC PFS, CLERGY, PUBLIC HEALTH REFERRALS PFS REFERRAL NEEDED?NO CLERGY REFERRAL NEEDED?NO PUBLIC HEALTH REFERRAL NEEDED?NO HAS THE PATIENT BEEN EDUCATED REGARDING HIS/HER PLAN OF CARE?YES HAS THE PATIENT BEEN EDUCATED REGARDING PAIN, THE RISK FOR PAIN, THE IMPORTANCE OF EFFECTIVE PAIN MANAGEMENT, AND THE PAIN ASSESSMENT PROCESS?YES LATEX QUESTIONNAIRE LATEX ALLERGY : HAVE YOU EVER DEVELOPED ANY TYPE OF REACTION AFTER HANDLING LATEX PRODUCTS SUCH RUBBER GLOVES, CONDOMS, DIAPHRAGMS, BALLOONS, SOCKS, OR UNDERWEAR?NO LATEX ALLERGY : HAVE YOU EVER DEVELOPED ANY TYPE OF REACTION DURING OR AFTER DENTAL APPOINTMENT, VAGINAL/RECTAL EXAMINATION, SURGICAL PROCEDURE, OR ANY OTHER EXPOSURE?NO DATE ASKED : 02/28/2019 LATEX RISK : HAVE YOU EVER HAD ANY DIFFICULTY BREATHING OR HIVES AFTER EATING OR HANDLING ANY FRUITS, OR VEGETABLES; SUCH KIWI, BANANAS, STONE FRUITS, OR CHESTNUTSNO LATEX RISK : DO YOU HAVE A PREVIOUS PERSONAL HISTORY OF MORE THAN NINE SURGERIES, SPINA BIFIDA, OR REPEATED CATHERIZATIONS? NO LATEX RISK : ARE YOU FREQUENTLY EXPOSED TO LATEX PRODUCTS IN YOUR OCCUPATION?NO CAFFEINE CAFFEINE USE? NO 2-3 CUPS COFFEE PER DAY. ADVANCE DIRECTIVE ADVANCE DIRECTIVE DISCUSSED WITH PATIENT:YES PT DECLINES INFORMATION OR ASSISTANCE AT THIS TIME SYNAGOGUE [id number] OTHER MARITAL STATUS: SINGLE. 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 HOSPITALIZATION/MAJOR DIAGNOSTIC PROCEDURE SURGERY 1993 REVIEW OF SYSTEMS REVIEWED BY: PROVIDER: CHRISTOPHER TONY FREELANCE RECRUITER-C . CONSTITUTIONAL: ANY CHANGE IN YOUR MEDICAL CONDITION? NO . CHILLS NO . FEVER NO . INFECTION: DO YOU HAVE NEW INFECTIONS? NO . DO YOU HAVE HISTORY OF MRSA? NO . MUSCULOSKELETAL: ANY NEW PATTERNS OF PAIN OR NUMBNESS? NO . GASTROENTEROLOGY: ANY NEW CHANGE IN BOWEL CONTROL? NO . GENITOURINARY: ANY NEW CHANGE IN BLADDER CONTROL? NO . IS THERE A CHANCE YOU COULD BE ? NO . HEMATOLOGY/LYMPH: DO YOU TAKE ANY BLOOD THINNERS? (FOR EXAMPLE- COUMADIN, PLAVIX, AGGRENOX, PLATEL, PRADAXA, OR XARELTO) NO . WHEN WAS YOUR LAST DOSE? DATE: TIME: . NEUROLOGY: HAVE YOU FALLEN IN THE PAST 12 MONTHS? NO . ANY NEW EXTREMITY NUMBNESS OR WEAKNESS? NO . CARDIOLOGY: DO YOU HAVE A PACEMAKER OR DEFIBRILLATOR? NO . RESPIRATORY: HAVE YOU BEEN SICK IN THE PAST WEEK? NO . FEVER NO . FLU LIKE SYMPTOMS? NO . COUGH NO . INTEGUMENTARY: DO YOU HAVE ANY RASHES OR OPEN SORES? NO . ALLERGIC/IMMUNO: ARE YOU ALLERGIC TO IV DYE? NO . ANY NEW ALLERGIES? NO . PSYCHIATRIC: DO YOU HAVE THOUGHTS OF HURTING YOURSELF OR SOMEONE ELSE? NO . ARE YOU ABUSED, NEGLECTED, OR IN AN UNSAFE ENVIRONMENT? NO . ENDOCRINOLOGY: ARE YOU DIABETIC? NO . OTHER: DO YOU NEED ANY PRESCRIPTIONS? NO . IF YES, PLEASE LIST: ____ . ANY NEW PROBLEMS WITH YOUR MEDICATIONS? NO . WHEN DID YOU LAST EAT? ____ . WHEN DID YOU LAST DRINK? ____ . WHAT DID YOU LAST DRINK? ____ . NAME OF PERSON DRIVING YOU HOME? ____ . DO YOU HAVE ANY OTHER QUESTIONS OR CONCERNS I CONSTANTLY CLENCH MY STOMACH, MAY I INCREASE A MUSCLE RELAXANT? . VITAL SIGNS WT 146 LBS, HT 67", BMI 22.86 INDEX, BP 130/83 MM HG, HR 109 /MIN, RR 16 /MIN, TEMP 97.3 F, OXYGEN SAT % 100%, NA INITIALS AW 1314, REVIEWED BY: EM. EXAMINATION GENERAL EXAMINATION: GENERALNO ACUTE DISTRESS, WELL NOURISHED AND HYDRATED. PSYCHAPPROPRIATE MOOD AND AFFECT . LUNGS:MILD WHEEZE NOTED BILATERALLY . HEART:NO MURMURS, REGULAR RATE AND RHYTHM. ASSESSMENTS LUMBAR POST-LAMINECTOMY SYNDROME - M96.1 (PRIMARY) TREATMENT LUMBAR POST-LAMINECTOMY SYNDROME STOP TIZANIDINE HCL TABLET, 4 MG, 1/2 TO 1 TABLET NEEDED, ORALLY, THREE TIMES A DAY CONTINUE BACLOFEN TABLET, 10 MG, 1-2 TABLET WITH FOOD OR MILK, ORALLY, THREE TIMES A DAY NEEDED MDD5, 30 DAYS, 150 STOP BUTRANS PATCH WEEKLY, 20 MCG/HR, APPLY 1 PATCH TO SKIN, TRANSDERMAL, Q7 DAYS =MDD CONTINUE BELBUCA FILM, 300 MCG, 1 FILM TO THE GUM, BUCALLY, EVERY 12 HRS MDD2, 30 DAYS, 60 CLINICAL NOTES: 39-YEAR-OLD FEMALE IN FOR CHRONIC PAIN FOLLOW-UP. GIVEN PRESENTING SYMPTOMS AND RESULTS OF PHYSICAL EXAMINATION RECOMMEND RESTARTING BELBUCA AND INCREASING BACLOFEN DOSAGE TO ONE OR 2 TABLETS NEEDED. PATIENT HAS EXPRESSED UNDERSTANDING OF AND WAS IN AGREEMENT WITH TREATMENT PLAN. GIVEN TIME TO ASK QUESTIONS AND EXPRESS CONCERNS., ISTOP REGISTRY REVIEWED AND DEMONSTRATES COMPLLIANCE. (REF # [id number] ) BRINGS IN MEDICATIONS WHICH IS APPROPRIATE FOR WHAT WAS DISPENSED. RECENT URINE TOXICOLOGY REVIEWED. NO UNAUTHORIZED MEDICATIONS. NO ILLICIT SUBSTANCES AND PRESCRIBED MEDICATIONS WERE PRESENT. PROCEDURE CODES FA211 ESTABILISHED PATIENT [facility] FACILITY CHARGE DISPOSITION & COMMUNICATION FOLLOW UP 2 MONTHS (REASON: BACK PAIN) ELECTRONICALLY SIGNED BY GAL COSTA ON 10/30/2019 AT 01:08 PM EST DISCLAIMER : THIS IS A VISIT SUMMARY EXTRACTED FROM THE [employer] CHART. IT IS NOT A COPY OF THE [employer] PROGRESS NOTE. MATTHEW
== END ==
LOC: M PAIN 13:15
PROVIDERS: ATTEND Family Medicine
DX: M96.1 Postlaminectomy syndrome, not elsewhere classified (principal)

== ENCOUNTER → 2019-12-29 | Outpatient (CLI) | payer MEDICAID, OTHER ==
--- NOTE | 2019-12-31 03:59 | ECWPNPC ---
PATIENT NAME: RADHA RODRÍGUEZ : 1980 GENDER: FEMALE VISIT DATE: 12/29/2019 DISCHARGE DATE: 12/29/19 1353 VISIT LOCKED DATE TIME: PHYSICIAN: KARSTEN JIMENEZ RESOURCE: KARSTEN JIMENEZ REASON FOR APPOINTMENT 1. CHRONIC PAIN HISTORY OF PRESENT ILLNESS HISTORY OF PRESENT ILLNESS: PAIN THE PATIENT DESCRIBES THE PAIN... 39 YEAR OLD FEMALE IN FOR CHRONIC PAIN FOLLOW UP. AT LAST CLINIC VISIT SHE WAS STARTED ON BELBUCA AND DOES ADMIT THAT THIS HAS BEEN HELPFUL HOWEVER SHE QUESTIONS AN INCREASE IN MEDICATION THE CURRENT DOSAGE DOES NOT SEEM TO BE COVERING HER PAIN. SHE RATES HER PAIN AT A 7/10 CURRENTLY AND DESCRIBES IT ACHING, SHARP, BURNING, SORE, SHOOTING, AND TENDER. FALL RISK SCREENING: SCREENING :NO FALLS REPORTED IN THE LAST YEAR CURRENT MEDICATIONS TAKING MULTIVITAMIN ADULT - TABLET 1 TABLET ORALLY DAILY TAKING ACETAMINOPHEN 500 MG CAPSULE 2 CAPSULES NEEDED ORALLY EVERY 6 HRS TAKING MELOXICAM 15 MG TABLET 1 TABLET ORALLY BEFORE BEDTIME TAKING CARISOPRODOL 350 MG TABLET 1 TABLET NEEDED ORALLY BEFORE BEDTIME PRN MDD1 #25 TAB SHOULD LAST 30 DAYS TAKING BACLOFEN 10 MG TABLET 1-2 TABLET WITH FOOD OR MILK ORALLY THREE TIMES A DAY NEEDED MDD4 TAKING BELBUCA 300 MCG FILM 1 FILM TO THE GUM BUCALLY EVERY 12 HRS MDD2 TAKING PERCOCET 5-325 MG TABLET 1 TABLET NEEDED ORALLY Q6H PRN PAIN MDD4 #75 TAB SHOULD LAST 30 DAYS TAKING TRAMADOL HCL 50 MG TABLET 1-2 TABLET NEEDED ORALLY Q6H PRN MDD6 #130 TAB SHOULD LAST 30 DAYS MEDICATION LIST REVIEWED AND RECONCILED WITH THE PATIENT PAST MEDICAL HISTORY HEART MURMUR A CHILD HEAD INJURY A CHILD BACK AND NECK PAIN ARTHRITIS SEVERE WEAKNESS LEFT LEG AT TIMES ALLERGIES ANIMAL FUR: HIVES - ALLERGY PERFUME: SNEEZING - ALLERGY SURGICAL HISTORY SPINAL FUSION L2-L4 1993 FAMILY HISTORY FATHER: ALIVE MOTHER: ALIVE 1 SISTER(S) - HEALTHY. SOCIAL HISTORY GENERAL: TOBACCO USE ARE YOU A:CURRENT SMOKER HOW OFTEN DO YOU SMOKE CIGARETTES?EVERY DAY HOW SOON AFTER YOU WAKE UP DO YOU SMOKE YOUR FIRST CIGARETTE?WITHIN 5 MIN HOW MANY CIGARETTES A DAY DO YOU SMOKE?11-20 ARE YOU INTERESTED IN QUITTING?THINKING ABOUT QUITTING IS USING VAPE TO HELP HER QUIT PATIENT COUNSELED ON THE DANGERS OF TOBACCO USE AND URGED TO QUIT:04/03/2019 COUNSELED THE PATIENT ON SMOKING CESSATION, EDUCATION [id number]/03/2019 PREVIOUS QUIT ATTEMPTS?NO. OTHERS AT HOME: OTHER NON-RELATIVE. DIET: REGULAR. LANGUAGE LANGUAGES SPOKEN:ICELANDIC RECREATIONAL DRUG USE DRUG USE? NO , PATIENT DENIES ABUSE OR MISSUSED OF ANY MEDICATION . , PATIENT DENIES USE OF ANY ILLEGAL SUBSTANCE INCLUDING MARIJUANA OR COCAINE .. 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 LEARNING BARRIERS / SPECIAL NEEDS BARRIERS TO LEARNING?NO HEARING IMPAIRED?NO VISION IMPAIRED?NO COGNITIVELY IMPAIRED?NO READINESS TO LEARN?YES LEARNING PREFERENCES?NO LEARNING CAPABILITIES PRESENT?YES EMOTIONAL BARRIERS?NO PAIN CLINIC PFS, CLERGY, PUBLIC HEALTH REFERRALS PFS REFERRAL NEEDED?NO CLERGY REFERRAL NEEDED?NO PUBLIC HEALTH REFERRAL NEEDED?NO HAS THE PATIENT BEEN EDUCATED REGARDING HIS/HER PLAN OF CARE?YES HAS THE PATIENT BEEN EDUCATED REGARDING PAIN, THE RISK FOR PAIN, THE IMPORTANCE OF EFFECTIVE PAIN MANAGEMENT, AND THE PAIN ASSESSMENT PROCESS?YES LATEX QUESTIONNAIRE LATEX ALLERGY : HAVE YOU EVER DEVELOPED ANY TYPE OF REACTION AFTER HANDLING LATEX PRODUCTS SUCH RUBBER GLOVES, CONDOMS, DIAPHRAGMS, BALLOONS, SOCKS, OR UNDERWEAR?NO LATEX ALLERGY : HAVE YOU EVER DEVELOPED ANY TYPE OF REACTION DURING OR AFTER DENTAL APPOINTMENT, VAGINAL/RECTAL EXAMINATION, SURGICAL PROCEDURE, OR ANY OTHER EXPOSURE?NO DATE ASKED : 02/28/2019 LATEX RISK : HAVE YOU EVER HAD ANY DIFFICULTY BREATHING OR HIVES AFTER EATING OR HANDLING ANY FRUITS, OR VEGETABLES; SUCH KIWI, BANANAS, STONE FRUITS, OR CHESTNUTSNO LATEX RISK : DO YOU HAVE A PREVIOUS PERSONAL HISTORY OF MORE THAN NINE SURGERIES, SPINA BIFIDA, OR REPEATED CATHERIZATIONS? NO LATEX RISK : ARE YOU FREQUENTLY EXPOSED TO LATEX PRODUCTS IN YOUR OCCUPATION?NO CAFFEINE CAFFEINE USE? NO 2-3 CUPS COFFEE PER DAY. ADVANCE DIRECTIVE ADVANCE DIRECTIVE DISCUSSED WITH PATIENT:YES PT DECLINES INFORMATION OR ASSISTANCE AT THIS TIME JEWISH [id number] OTHER MARITAL STATUS: SINGLE. 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 HOSPITALIZATION/MAJOR DIAGNOSTIC PROCEDURE SURGERY 1993 REVIEW OF SYSTEMS REVIEWED BY: PROVIDER: CONCHITA WAN . CONSTITUTIONAL: ANY CHANGE IN YOUR MEDICAL CONDITION? NO . CHILLS NO . FEVER NO . INFECTION: DO YOU HAVE NEW INFECTIONS? NO . DO YOU HAVE HISTORY OF MRSA? NO . MUSCULOSKELETAL: ANY NEW PATTERNS OF PAIN OR NUMBNESS? NO . GASTROENTEROLOGY: ANY NEW CHANGE IN BOWEL CONTROL? NO . GENITOURINARY: ANY NEW CHANGE IN BLADDER CONTROL? NO . IS THERE A CHANCE YOU COULD BE ? NO . HEMATOLOGY/LYMPH: DO YOU TAKE ANY BLOOD THINNERS? (FOR EXAMPLE- COUMADIN, PLAVIX, AGGRENOX, PLATEL, PRADAXA, OR XARELTO) NO . WHEN WAS YOUR LAST DOSE? DATE: TIME: . NEUROLOGY: HAVE YOU FALLEN IN THE PAST 12 MONTHS? NO . ANY NEW EXTREMITY NUMBNESS OR WEAKNESS? NO . CARDIOLOGY: DO YOU HAVE A PACEMAKER OR DEFIBRILLATOR? NO . RESPIRATORY: HAVE YOU BEEN SICK IN THE PAST WEEK? NO . FEVER NO . FLU LIKE SYMPTOMS? NO . COUGH NO . INTEGUMENTARY: DO YOU HAVE ANY RASHES OR OPEN SORES? NO . ALLERGIC/IMMUNO: ARE YOU ALLERGIC TO IV DYE? NO . ANY NEW ALLERGIES? NO . PSYCHIATRIC: DO YOU HAVE THOUGHTS OF HURTING YOURSELF OR SOMEONE ELSE? NO . ARE YOU ABUSED, NEGLECTED, OR IN AN UNSAFE ENVIRONMENT? NO . ENDOCRINOLOGY: ARE YOU DIABETIC? NO . OTHER: DO YOU NEED ANY PRESCRIPTIONS? YES . IF YES, PLEASE LIST: BELBUCA . ANY NEW PROBLEMS WITH YOUR MEDICATIONS? NO . WHEN DID YOU LAST EAT? ____ . WHEN DID YOU LAST DRINK? ____ . WHAT DID YOU LAST DRINK? ____ . NAME OF PERSON DRIVING YOU HOME? ____ . DO YOU HAVE ANY OTHER QUESTIONS OR CONCERNS NO . VITAL SIGNS WT 146 LBS, HT 67", BMI 22.86 INDEX, BP 125/84 MM HG, HR 117 /MIN, RR 16 /MIN, TEMP 97.0 F, OXYGEN SAT % 98%, NA INITIALS AW 1327, REVIEWED BY: LS. EXAMINATION GENERAL EXAMINATION: GENERALNO ACUTE DISTRESS, WELL NOURISHED AND HYDRATED. PSYCHAPPROPRIATE MOOD AND AFFECT . LUNGS:CLEAR TO AUSCULTATION BILATERALLY, NO WHEEZES, RHONCHI, RALES. HEART:NO MURMURS, REGULAR RATE AND RHYTHM. ASSESSMENTS LUMBAR POST-LAMINECTOMY SYNDROME - M96.1 (PRIMARY) TREATMENT LUMBAR POST-LAMINECTOMY SYNDROME REFILL BELBUCA FILM, 450 MCG, 1 FILM TO THE GUM, BUCALLY, EVERY 12 HRS MDD2, 30 DAYS, 60 CLINICAL NOTES: 39 YEAR OLD FEMALE IN FOR CHRONIC PAIN FOLLOW UP. GIVEN PRESENTING SYMPTOMS AND RESULTS OF PHYSICAL EXAMINATION RECOMMEND INCREASING BELBUCA WITH FOLLOW UP IN 2 MONTHS TO DETERMINE EFFICACY OF TREATMENT. PATIENT HAS EXPRESSED UNDERSTANDING OF AND WAS IN AGREEMENT WITH TX PLAN. GIVEN TIME TO ASK QUESTIONS AND EXPRESS CONCERNS. , ISTOP REGISTRY REVIEWED AND DEMONSTRATES COMPLLIANCE. (REF #[id number] ) BRINGS IN MEDICATIONS WHICH IS APPROPRIATE FOR WHAT WAS DISPENSED. RECENT URINE TOXICOLOGY REVIEWED. NO UNAUTHORIZED MEDICATIONS. NO ILLICIT SUBSTANCES AND PRESCRIBED MEDICATIONS WERE PRESENT. PROCEDURE CODES FA211 ESTABILISHED PATIENT [facility] FACILITY CHARGE DISPOSITION & COMMUNICATION FOLLOW UP 2 MONTHS (REASON: BACK PAIN, MED INCREASE) ELECTRONICALLY SIGNED BY GAL COSTA ON 12/30/2019 AT 07:58 AM EST DISCLAIMER : THIS IS A VISIT SUMMARY EXTRACTED FROM THE [employer] CHART. IT IS NOT A COPY OF THE [employer] PROGRESS NOTE. MATTHEW
== END ==
LOC: M PAIN 13:00
PROVIDERS: ATTEND Family Medicine
DX: M96.1 Postlaminectomy syndrome, not elsewhere classified (principal); F17.210 Nicotine dependence, cigarettes, uncomplicated; Z79.891 Long term (current) use of opiate analgesic; Z79.899 Other long term (current) drug therapy

== ENCOUNTER → 2020-04-15 | Outpatient (CLI) | payer MEDICAID, OTHER ==
--- NOTE | 2020-04-17 02:22 | ECWPNPC ---
PATIENT NAME: RADHA RODRÍGUEZ : 1980 GENDER: FEMALE VISIT DATE: 04/15/2020 DISCHARGE DATE: 04/15/20 1344 VISIT LOCKED DATE TIME: PHYSICIAN: KARSTEN JIMENEZ RESOURCE: KARSTEN JIMENEZ REASON FOR APPOINTMENT 1. BACK PAIN HISTORY OF PRESENT ILLNESS HISTORY OF PRESENT ILLNESS: PAIN THE PATIENT DESCRIBES THE PAIN... 39-YEAR-OLD FEMALE IN FOR CHRONIC PAIN FOLLOW-UP. SHE RATES HER PAIN AT A 7 OUT OF 10 CURRENTLY AND DESCRIBES IT ACHING, THROBBING, AND STABBING. SHE FEELS THE MEDICATIONS ARE HELPFUL AND DENIES MED SIDE EFFECTS AT THIS TIME. FALL RISK SCREENING: SCREENING :NO FALLS REPORTED IN THE LAST YEAR CURRENT MEDICATIONS TAKING MULTIVITAMIN ADULT - TABLET 1 TABLET ORALLY DAILY TAKING ACETAMINOPHEN 500 MG CAPSULE 2 CAPSULES NEEDED ORALLY EVERY 6 HRS TAKING MELOXICAM 15 MG TABLET 1 TABLET ORALLY BEFORE BEDTIME TAKING CARISOPRODOL 350 MG TABLET 1 TABLET NEEDED ORALLY BEFORE BEDTIME PRN MDD1 #25 TAB SHOULD LAST 30 DAYS TAKING BACLOFEN 20 MG TABLET 1 TABLET WITH FOOD OR MILK MAY HALF TAB IF NEEDED ORALLY THREE TIMES A DAY NEEDED MDD3 TAKING BELBUCA 450 MCG FILM 1 FILM TO THE GUM BUCALLY EVERY 12 HRS MDD2 TAKING TRAMADOL HCL 50 MG TABLET 1-2 TABLET NEEDED ORALLY Q6H PRN MDD6 #130 TAB SHOULD LAST 30 DAYS TAKING PERCOCET 5-325 MG TABLET 1 TABLET NEEDED ORALLY Q6H PRN PAIN MDD4 #75 TAB SHOULD LAST 30 DAYS MEDICATION LIST REVIEWED AND RECONCILED WITH THE PATIENT PAST MEDICAL HISTORY HEART MURMUR A CHILD HEAD INJURY A CHILD BACK AND NECK PAIN ARTHRITIS SEVERE WEAKNESS LEFT LEG AT TIMES ALLERGIES ANIMAL FUR: HIVES - ALLERGY PERFUME: SNEEZING - ALLERGY SURGICAL HISTORY SPINAL FUSION L2-L4 1993 FAMILY HISTORY FATHER: ALIVE MOTHER: ALIVE 1 SISTER(S) - HEALTHY. SOCIAL HISTORY GENERAL: TOBACCO USE ARE YOU A:CURRENT SMOKER ARE YOU INTERESTED IN QUITTING?THINKING ABOUT QUITTING IS USING VAPE TO HELP HER QUIT PREVIOUS QUIT ATTEMPTS?NO. COUNSELED THE PATIENT ON SMOKING CESSATION, EDUCATION WEEDWNLE03/21/2020 HOW MANY CIGARETTES A DAY DO YOU SMOKE?11-20 HOW SOON AFTER YOU WAKE UP DO YOU SMOKE YOUR FIRST CIGARETTE?WITHIN 5 MIN HOW OFTEN DO YOU SMOKE CIGARETTES?EVERY DAY PATIENT COUNSELED ON THE DANGERS OF TOBACCO USE AND URGED TO QUIT:04/15/2020 LATEX QUESTIONNAIRE LATEX ALLERGY : HAVE YOU EVER DEVELOPED ANY TYPE OF REACTION AFTER HANDLING LATEX PRODUCTS SUCH RUBBER GLOVES, CONDOMS, DIAPHRAGMS, BALLOONS, SOCKS, OR UNDERWEAR?NO LATEX ALLERGY : HAVE YOU EVER DEVELOPED ANY TYPE OF REACTION DURING OR AFTER DENTAL APPOINTMENT, VAGINAL/RECTAL EXAMINATION, SURGICAL PROCEDURE, OR ANY OTHER EXPOSURE?NO LATEX RISK : HAVE YOU EVER HAD ANY DIFFICULTY BREATHING OR HIVES AFTER EATING OR HANDLING ANY FRUITS, OR VEGETABLES; SUCH KIWI, BANANAS, STONE FRUITS, OR CHESTNUTSNO LATEX RISK : DO YOU HAVE A PREVIOUS PERSONAL HISTORY OF MORE THAN NINE SURGERIES, SPINA BIFIDA, OR REPEATED CATHERIZATIONS? NO LATEX RISK : ARE YOU FREQUENTLY EXPOSED TO LATEX PRODUCTS IN YOUR OCCUPATION?NO DATE ASKED : 04/15/2020 ALCOHOL SCREENING DID YOU HAVE A DRINK CONTAINING ALCOHOL IN THE PAST YEAR?NO POINTS0 INTERPRETATIONNEGATIVE RECREATIONAL DRUG USE DRUG USE? NO , PATIENT DENIES ABUSE OR MISSUSED OF ANY MEDICATION . , PATIENT DENIES USE OF ANY ILLEGAL SUBSTANCE INCLUDING MARIJUANA OR COCAINE .. CAFFEINE CAFFEINE USE? NO 2-3 CUPS COFFEE PER DAY. 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 MARITAL STATUS: SINGLE. OTHERS AT HOME: OTHER NON-RELATIVE. NEW PATIENT PAIN DIARY TODAY'S VISIT 04/15/2020 PATIENT DESCRIBES PAIN :ACHING, STABBING, THROBBING FROM 0-10, WHAT LEVEL IS YOUR PAIN TODAY?7 PRECIPITATING FACTORS LIFTING, TWISTING, TURNING ALLEVIATING FACTORS LAYING DOWN HELPS PAIN CLINIC PFS, CLERGY, PUBLIC HEALTH REFERRALS PFS REFERRAL NEEDED?NO CLERGY REFERRAL NEEDED?NO PUBLIC HEALTH REFERRAL NEEDED?NO HAS THE PATIENT BEEN EDUCATED REGARDING HIS/HER PLAN OF CARE?YES HAS THE PATIENT BEEN EDUCATED REGARDING PAIN, THE RISK FOR PAIN, THE IMPORTANCE OF EFFECTIVE PAIN MANAGEMENT, AND THE PAIN ASSESSMENT PROCESS?YES ADVANCE DIRECTIVE ADVANCE DIRECTIVE DISCUSSED WITH PATIENT:YES PT DECLINES INFORMATION OR ASSISTANCE AT THIS TIME REVIEWED WITH PT 04/03/19 1400 LASREVIEWED WITH PT 06/24/19 1413 NLJ. HOSPITALIZATION/MAJOR DIAGNOSTIC PROCEDURE SURGERY 1993 REVIEW OF SYSTEMS REVIEWED BY: PROVIDER: CHRISTOPHER TONY WEB CONTENT WRITER-C . CONSTITUTIONAL: ANY CHANGE IN YOUR MEDICAL CONDITION? NO . CHILLS NO . FEVER NO . INFECTION: DO YOU HAVE NEW INFECTIONS? NO . DO YOU HAVE HISTORY OF MRSA? NO . MUSCULOSKELETAL: ANY NEW PATTERNS OF PAIN OR NUMBNESS? NO . GASTROENTEROLOGY: ANY NEW CHANGE IN BOWEL CONTROL? NO . GENITOURINARY: ANY NEW CHANGE IN BLADDER CONTROL? NO . IS THERE A CHANCE YOU COULD BE ? NO . HEMATOLOGY/LYMPH: DO YOU TAKE ANY BLOOD THINNERS? (FOR EXAMPLE- COUMADIN, PLAVIX, AGGRENOX, PLATEL, PRADAXA, OR XARELTO) NO . WHEN WAS YOUR LAST DOSE? DATE: TIME: . NEUROLOGY: HAVE YOU FALLEN IN THE PAST 12 MONTHS? NO . ANY NEW EXTREMITY NUMBNESS OR WEAKNESS? NO . CARDIOLOGY: DO YOU HAVE A PACEMAKER OR DEFIBRILLATOR? NO . RESPIRATORY: HAVE YOU BEEN SICK IN THE PAST WEEK? NO . FEVER NO . FLU LIKE SYMPTOMS? NO . COUGH NO . INTEGUMENTARY: DO YOU HAVE ANY RASHES OR OPEN SORES? NO . ALLERGIC/IMMUNO: ARE YOU ALLERGIC TO IV DYE? NO . ANY NEW ALLERGIES? NO . PSYCHIATRIC: DO YOU HAVE THOUGHTS OF HURTING YOURSELF OR SOMEONE ELSE? NO . ARE YOU ABUSED, NEGLECTED, OR IN AN UNSAFE ENVIRONMENT? NO . ENDOCRINOLOGY: ARE YOU DIABETIC? NO . OTHER: DO YOU NEED ANY PRESCRIPTIONS? NO . IF YES, PLEASE LIST: ____ . ANY NEW PROBLEMS WITH YOUR MEDICATIONS? NO . WHEN DID YOU LAST EAT? ____ . WHEN DID YOU LAST DRINK? ____ . WHAT DID YOU LAST DRINK? ____ . NAME OF PERSON DRIVING YOU HOME? ____ . DO YOU HAVE ANY OTHER QUESTIONS OR CONCERNS NO . VITAL SIGNS WT 145.0 LBS, HT 67", BMI 22.71 INDEX, BP 139/86 MM HG, HR 97 /MIN, RR 18 /MIN, TEMP 96.0 F, OXYGEN SAT % 100%, NA INITIALS AW 1312. EXAMINATION GENERAL EXAMINATION: GENERALNO ACUTE DISTRESS, WELL NOURISHED AND HYDRATED. PSYCHAPPROPRIATE MOOD AND AFFECT . LUNGS:CLEAR TO AUSCULTATION BILATERALLY, NO WHEEZES, RHONCHI, RALES. HEART:NO MURMURS, REGULAR RATE AND RHYTHM. ASSESSMENTS LUMBAR POST-LAMINECTOMY SYNDROME - M96.1 (PRIMARY) TREATMENT LUMBAR POST-LAMINECTOMY SYNDROME CLINICAL NOTES: 39-YEAR-OLD FEMALE IN FOR CHRONIC PAIN FOLLOW-UP. GIVEN PRESENTING SYMPTOMS RECOMMENDED CONTINUATION OF CURRENT MEDICATION REGIMEN WITH FOLLOW-UP IN 3 MONTHS. PATIENT HAS EXPRESSED UNDERSTANDING OF AND WAS IN AGREEMENT WITH TREATMENT PLAN. GIVEN TIME TO ASK QUESTIONS AND EXPRESS CONCERNS. , [employer] REGISTRY REVIEWED AND DEMONSTRATES COMPLLIANCE. (REF # [id number] ) BRINGS IN MEDICATIONS WHICH IS APPROPRIATE FOR WHAT WAS DISPENSED. RECENT URINE TOXICOLOGY REVIEWED. NO UNAUTHORIZED MEDICATIONS. NO ILLICIT SUBSTANCES AND PRESCRIBED MEDICATIONS WERE PRESENT. PROCEDURE CODES [id number] ESTABILISHED PATIENT [facility] CHARGE DISPOSITION & COMMUNICATION FOLLOW UP 3 MONTHS (REASON: BACK PAIN ) ELECTRONICALLY SIGNED BY GAL COSTA ON 04/16/2020 AT 07:55 AM EDT DISCLAIMER : THIS IS A VISIT SUMMARY EXTRACTED FROM THE [employer] CHART. IT IS NOT A COPY OF THE [employer] PROGRESS NOTE. MATTHEW
== END ==
LOC: M PAIN 13:15
PROVIDERS: ATTEND Family Medicine
DX: M96.1 Postlaminectomy syndrome, not elsewhere classified (principal)

== ENCOUNTER → 2020-08-13 | Outpatient (CLI) | payer OTHER | LOC: M PAIN 14:44 | PROVIDERS: ATTEND Family Medicine | DX: M96.1 Postlaminectomy syndrome, not elsewhere classified (principal) ==

== ENCOUNTER → 2020-09-13 | Outpatient (CLI) | payer OTHER, MEDICAID ==
--- NOTE | 2020-09-14 16:25 | ECWPNPC ---
PATIENT NAME: RADHA RODRÍGUEZ : 1980 GENDER: FEMALE VISIT DATE: 09/13/2020 DISCHARGE DATE: 09/13/20 1438 VISIT LOCKED DATE TIME: PHYSICIAN: KARSTEN JIMENEZ RESOURCE: KARSTEN JIMENEZ REASON FOR APPOINTMENT 1. BACK PAIN HISTORY OF PRESENT ILLNESS DEPRESSION SCREENIN-YEAR-OLD FEMALE IN FOR CHRONIC PAIN FOLLOW-UP. AT LAST CLINIC VISIT HER BELBUCA WAS INCREASED AND SHE ADMITS TODAY THAT THIS HAS BEEN HELPFUL. SHE RATES HER PAIN CURRENTLY AT A 7 OUT OF 10 AND DESCRIBES IT ACHING, AND SORE. PHQ-2 (2015 EDITION) LITTLE INTEREST OR PLEASURE IN DOING THINGS?NOT AT ALL FEELING DOWN, DEPRESSED, OR HOPELESS?NOT AT ALL TOTAL SCORE0 GENERAL: -. FALL RISK SCREENING: SCREENING :NO FALLS REPORTED IN THE LAST YEAR PAIN SCREENING: PATIENT HAS A COMPLAINT OF ACUTE OR CHRONIC PAIN :YES LOCATION OF PAIN:LOW BACK INTENSITY OF PAIN (SCALE OF 1 TO 10):7 WHAT DOES YOUR PAIN FEEL LIKE:ACHING, SORE DURATION:CONSTANT, AWAKENS FROM SLEEP PAIN IS INCREASED BY:ACTIVITIES, PROLONGED STANDING PAIN IS DECREASED BY:USE OF PAIN MEDICATIONS, OTHERS HEAT AND REST HELP TO REDUCE PAIN. NURSING NOTE: -. PAIN CENTER INTAKE QUESTIONS: DO YOU HAVE A HISTORY OF MRSA? :NO DO YOU TAKE A BLOOD THINNERS? :NO DO YOU HAVE ANY BLEEDING DISORDERS? :NO ANY NEW NUMBNESS OR WEAKNESS IN YOUR LEGS OR ARMS? :NO ANY PACEMAKER,DEFIBRILLATOR, OR DORSAL COLUMN STIMULATOR? :NO DO YOU HAVE ANY RASHES OR OPEN SORES? :NO ARE YOU ALLERGIC TO IV DYE? :NO ARE YOU DIABETIC? :NO ANY NEW PROBLEMS WITH YOUR MEDICATIONS? :NO HAVE YOU RECEIVED A VACCINE IN THE PAST 30 DAYS? :NO DO YOU PLAN TO RECEIVE A VACCINE IN THE NEXT 21 DAYS? :NO DO YOU NEED ANY PRESCRIPTION? :YES BACLOFEN DO YOU TAKE ANY IMMUNOSUPPRESSIVE MEDICATIONS? :NO IS THERE A CHANCE YOU COULD BE ? :NO ARE YOU BREAST FEEDING? :NO CURRENT MEDICATIONS TAKING MULTIVITAMIN ADULT - TABLET 1 TABLET ORALLY DAILY TAKING ACETAMINOPHEN 500 MG CAPSULE 2 CAPSULES NEEDED ORALLY EVERY 6 HRS TAKING MELOXICAM 15 MG TABLET 1 TABLET ORALLY BEFORE BEDTIME TAKING BACLOFEN 20 MG TABLET 1 TABLET WITH FOOD OR MILK MAY HALF TAB IF NEEDED ORALLY THREE TIMES A DAY NEEDED MDD3 TAKING TRAMADOL HCL 50 MG TABLET 1-2 TABLET NEEDED ORALLY Q6H PRN MDD6 #130 TAB SHOULD LAST 30 DAYS TAKING BELBUCA 600 MCG FILM 1 FILM TO THE GUM BUCALLY EVERY 12 HRS MDD2 TAKING CARISOPRODOL 350 MG TABLET 1 TABLET NEEDED ORALLY BEFORE BEDTIME PRN MDD1 #25 TAB SHOULD LAST 30 DAYS TAKING PERCOCET 5-325 MG TABLET 1 TABLET NEEDED ORALLY Q6H PRN PAIN MDD4 #75 TAB SHOULD LAST 30 DAYS MEDICATION LIST REVIEWED AND RECONCILED WITH THE PATIENT PAST MEDICAL HISTORY HEART MURMUR A CHILD HEAD INJURY A CHILD BACK AND NECK PAIN ARTHRITIS SEVERE WEAKNESS LEFT LEG AT TIMES ALLERGIES ANIMAL FUR: HIVES - ALLERGY PERFUME: SNEEZING - ALLERGY SURGICAL HISTORY SPINAL FUSION L2-L4 1993 FAMILY HISTORY FATHER: ALIVE MOTHER: ALIVE 1 SISTER(S) - HEALTHY. SOCIAL HISTORY GENERAL: TOBACCO USE ARE YOU A:CURRENT SMOKER ARE YOU INTERESTED IN QUITTING?THINKING ABOUT QUITTING IS USING VAPE TO HELP HER QUIT PREVIOUS QUIT ATTEMPTS?NO. COUNSELED THE PATIENT ON SMOKING CESSATION, EDUCATION [id number]/19/2020 HOW MANY CIGARETTES A DAY DO YOU SMOKE?11-20 HOW SOON AFTER YOU WAKE UP DO YOU SMOKE YOUR FIRST CIGARETTE?WITHIN 5 MIN HOW OFTEN DO YOU SMOKE CIGARETTES?EVERY DAY PATIENT COUNSELED ON THE DANGERS OF TOBACCO USE AND URGED TO QUIT:09/13/2020 LATEX QUESTIONNAIRE LATEX ALLERGY : HAVE YOU EVER DEVELOPED ANY TYPE OF REACTION AFTER HANDLING LATEX PRODUCTS SUCH RUBBER GLOVES, CONDOMS, DIAPHRAGMS, BALLOONS, SOCKS, OR UNDERWEAR?NO LATEX ALLERGY : HAVE YOU EVER DEVELOPED ANY TYPE OF REACTION DURING OR AFTER DENTAL APPOINTMENT, VAGINAL/RECTAL EXAMINATION, SURGICAL PROCEDURE, OR ANY OTHER EXPOSURE?NO DATE ASKED : 04/15/2020 LATEX RISK : HAVE YOU EVER HAD ANY DIFFICULTY BREATHING OR HIVES AFTER EATING OR HANDLING ANY FRUITS, OR VEGETABLES; SUCH KIWI, BANANAS, STONE FRUITS, OR CHESTNUTSNO LATEX RISK : DO YOU HAVE A PREVIOUS PERSONAL HISTORY OF MORE THAN NINE SURGERIES, SPINA BIFIDA, OR REPEATED CATHERIZATIONS? NO LATEX RISK : ARE YOU FREQUENTLY EXPOSED TO LATEX PRODUCTS IN YOUR OCCUPATION?NO ALCOHOL SCREENING DID YOU HAVE A DRINK CONTAINING ALCOHOL IN THE PAST YEAR?NO POINTS0 INTERPRETATIONNEGATIVE RECREATIONAL DRUG USE DRUG USE? NO , PATIENT DENIES ABUSE OR MISSUSED OF ANY MEDICATION . , PATIENT DENIES USE OF ANY ILLEGAL SUBSTANCE INCLUDING MARIJUANA OR COCAINE .. CAFFEINE CAFFEINE USE? NO 2-3 CUPS COFFEE PER DAY. 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 MARITAL STATUS: SINGLE. OTHERS AT HOME: OTHER NON-RELATIVE. NEW PATIENT PAIN DIARY TODAY'S VISIT 04/15/2020 PATIENT DESCRIBES PAIN :ACHING, STABBING, THROBBING FROM 0-10, WHAT LEVEL IS YOUR PAIN TODAY?7 PRECIPITATING FACTORS LIFTING, TWISTING, TURNING ALLEVIATING FACTORS LAYING DOWN HELPS PAIN CLINIC PFS, CLERGY, PUBLIC HEALTH REFERRALS PFS REFERRAL NEEDED?NO CLERGY REFERRAL NEEDED?NO PUBLIC HEALTH REFERRAL NEEDED?NO HAS THE PATIENT BEEN EDUCATED REGARDING HIS/HER PLAN OF CARE?YES HAS THE PATIENT BEEN EDUCATED REGARDING PAIN, THE RISK FOR PAIN, THE IMPORTANCE OF EFFECTIVE PAIN MANAGEMENT, AND THE PAIN ASSESSMENT PROCESS?YES ADVANCE DIRECTIVE ADVANCE DIRECTIVE DISCUSSED WITH PATIENT:YES PT DECLINES INFORMATION OR ASSISTANCE AT THIS TIME REVIEWED WITH PT 04/03/19 1400 LASREVIEWED WITH PT 06/24/19 1413 NLJ. HOSPITALIZATION/MAJOR DIAGNOSTIC PROCEDURE SURGERY 1993 REVIEW OF SYSTEMS CONSTITUTIONAL: ANY RECENT FEVER NO . CHILLS NO . WEIGHT CHANGE OF UNKNOWN REASONS NO . GASTROENTEROLOGY: NEW UNEXPLAINABLE CHANGES IN BOWEL CONTROL NO . CONSTIPATION NO . GENITOURINARY: ANY NEW CHANGE IN BLADDER CONTROL? NO . NEUROLOGY: NEW ONSET DIZZINESS OR NEUROLOGICAL CHANGES NOT MENTIONED NO . NEW NUMBNESS OR PAIN PATTERNS NOT MENTIONED AND PERTINENT TO TODAY'S VISIT NO . CARDIOLOGY: NEW CHEST PRESSURE NO . NEW CHEST PAIN NO . RESPIRATORY: UNEXPLAINABLE COUGH NO . NEW SHORTNESS OF BREATH NO . VITAL SIGNS WT 140.8 LBS, HT 67", BMI 22.05 INDEX, BP 144/70 MM HG, HR 104 /MIN, RR 18 /MIN, TEMP 97.6 F, OXYGEN SAT % 100%, SAFE IN ENV? (Y/N) YES, NA INITIALS AW 1354, REVIEWED BY: DM. EXAMINATION GENERAL EXAMINATION: GENERALNO ACUTE DISTRESS, WELL NOURISHED AND HYDRATED. PSYCHAPPROPRIATE MOOD AND AFFECT . LUNGS:CLEAR TO AUSCULTATION BILATERALLY, NO WHEEZES, RHONCHI, RALES. HEART:NO MURMURS, REGULAR RATE AND RHYTHM. ASSESSMENTS LUMBAR POST-LAMINECTOMY SYNDROME - M96.1 (PRIMARY) TREATMENT LUMBAR POST-LAMINECTOMY SYNDROME CLINICAL NOTES: 31-YEAR-OLD FEMALE IN FOR CHRONIC PAIN FOLLOW-UP. GIVEN PRESENTING SYMPTOMS RECOMMEND FOLLOW-UP IN 2 MONTHS. PATIENT HAS EXPRESSED UNDERSTANDING OF AND WAS IN AGREEMENT WITH TREATMENT PLAN. GIVEN TIME TO ASK QUESTIONS AND ADDRESS CONCERNS. , ISTOP REGISTRY REVIEWED AND DEMONSTRATES COMPLLIANCE. (REF # [id number] ) BRINGS IN MEDICATIONS WHICH IS APPROPRIATE FOR WHAT WAS DISPENSED. RECENT URINE TOXICOLOGY REVIEWED. NO UNAUTHORIZED MEDICATIONS. NO ILLICIT SUBSTANCES AND PRESCRIBED MEDICATIONS WERE PRESENT. PROCEDURE CODES FA211 ESTABILISHED PATIENT [facility] CHARGE DISPOSITION & COMMUNICATION FOLLOW UP 2 MONTHS (REASON: BACK PAIN) ELECTRONICALLY SIGNED BY GAL COSTA ON 09/14/2020 AT 03:15 PM EDT DISCLAIMER : THIS IS A VISIT SUMMARY EXTRACTED FROM THE [employer] CHART. IT IS NOT A COPY OF THE [employer] PROGRESS NOTE. MATTHEW
== END ==
LOC: M PAIN 13:45
PROVIDERS: ATTEND Family Medicine
DX: M96.1 Postlaminectomy syndrome, not elsewhere classified (principal); F17.210 Nicotine dependence, cigarettes, uncomplicated; Z98.1 Arthrodesis status; Z79.1 Long term (current) use of non-steroidal anti-inflammatories (NSAID); Z79.891 Long term (current) use of opiate analgesic; Z79.899 Other long term (current) drug therapy; J30.81 Allergic rhinitis due to animal (cat) (dog) hair and dander; Z91.048 Other nonmedicinal substance allergy status

== ENCOUNTER → 2020-11-29 | Outpatient (CLI) | payer MEDICAID, OTHER ==
--- NOTE | 2020-12-01 01:34 | ECWPNPC ---
PATIENT NAME: RADHA RODRÍGUEZ : 1980 GENDER: FEMALE VISIT DATE: 11/29/2020 DISCHARGE DATE: 11/29/20 1510 VISIT LOCKED DATE TIME: PHYSICIAN: KARSTEN JIMENEZ RESOURCE: KARTSEN JIMENEZ REASON FOR APPOINTMENT 1. BACK PAIN HISTORY OF PRESENT ILLNESS GENERAL: 40-YEAR-OLD FEMALE IN FOR CHRONIC PAIN FOLLOW-UP. AT RECCENT CLINIC VISIT PATIENT'S MEDICATIONS WERE INCREASED AND SHE ADMITS TODAY THAT THIS HAS BEEN BENEFICIAL. SHE FEELS HER MEDICATIONS ARE HELPFUL AND DENIES MED SIDE EFFECTS AT THIS TIME. -. FALL RISK SCREENING: SCREENING :NO FALLS REPORTED IN THE LAST YEAR PAIN SCREENING: PATIENT HAS A COMPLAINT OF ACUTE OR CHRONIC PAIN :YES LOCATION OF PAIN:LOW BACK INTENSITY OF PAIN (SCALE OF 1 TO 10):7 WHAT DOES YOUR PAIN FEEL LIKE:ACHING, BURNING, STABBING, THROBBING DURATION:CONTINOUS, CONSTANT PAIN IS INCREASED BY:ACTIVITIES PAIN IS DECREASED BY:USE OF PAIN MEDICATIONS TREATMENT/MEDICATIONS USED TO MANAGE PAIN:OPIOIDS LEVEL OF RELIEF FROM PAIN TREATMENTS IN THE PAST:50% PAIN HAS INTERFERED WITH THE FOLLOWING:BATHING/DRESSING, WALKING ABILITY, HOUSEWORK, SLEEP, ENJOYMENT OF LIFE, TRANSPORTATION, TOILETING NURSING NOTE: -. PAIN CENTER INTAKE QUESTIONS: DO YOU HAVE A HISTORY OF MRSA? :NO DO YOU TAKE A BLOOD THINNERS? :NO DO YOU HAVE ANY BLEEDING DISORDERS? :NO ANY NEW NUMBNESS OR WEAKNESS IN YOUR LEGS OR ARMS? :NO ANY PACEMAKER,DEFIBRILLATOR, OR DORSAL COLUMN STIMULATOR? :NO DO YOU HAVE ANY RASHES OR OPEN SORES? :NO ARE YOU ALLERGIC TO IV DYE? :NO ARE YOU DIABETIC? :NO ANY NEW PROBLEMS WITH YOUR MEDICATIONS? :NO HAVE YOU RECEIVED A VACCINE IN THE PAST 30 DAYS? :NO DO YOU PLAN TO RECEIVE A VACCINE IN THE NEXT 21 DAYS? :NO DO YOU NEED ANY PRESCRIPTION? :YES [place] DO YOU TAKE ANY IMMUNOSUPPRESSIVE MEDICATIONS? :NO IS THERE A CHANCE YOU COULD BE ? :NO ARE YOU BREAST FEEDING? :NO CURRENT MEDICATIONS TAKING MULTIVITAMIN ADULT - TABLET 1 TABLET ORALLY DAILY TAKING ACETAMINOPHEN 500 MG CAPSULE 2 CAPSULES NEEDED ORALLY EVERY 6 HRS TAKING MELOXICAM 15 MG TABLET 1 TABLET ORALLY BEFORE BEDTIME TAKING CARISOPRODOL 350 MG TABLET 1 TABLET NEEDED ORALLY BEFORE BEDTIME PRN MDD1 #25 TAB SHOULD LAST 30 DAYS TAKING BACLOFEN 20 MG TABLET 1 TABLET WITH FOOD OR MILK MAY HALF TAB IF NEEDED ORALLY THREE TIMES A DAY NEEDED MDD3 TAKING TRAMADOL HCL 50 MG TABLET 1-2 TABLET NEEDED ORALLY Q6H PRN MDD6 #130 TAB SHOULD LAST 30 DAYS TAKING PERCOCET 5-325 MG TABLET 1 TABLET NEEDED ORALLY Q6H PRN PAIN MDD4 #75 TAB SHOULD LAST 30 DAYS TAKING BELBUCA 600 MCG FILM 1 FILM TO THE GUM BUCALLY EVERY 12 HRS MDD2 MEDICATION LIST REVIEWED AND RECONCILED WITH THE PATIENT PAST MEDICAL HISTORY HEART MURMUR A CHILD HEAD INJURY A CHILD BACK AND NECK PAIN ARTHRITIS SEVERE WEAKNESS LEFT LEG AT TIMES ALLERGIES ANIMAL FUR: HIVES - ALLERGY PERFUME: SNEEZING - ALLERGY SURGICAL HISTORY SPINAL FUSION L2-L4 1993 FAMILY HISTORY FATHER: ALIVE MOTHER: ALIVE 1 SISTER(S) - HEALTHY. SOCIAL HISTORY GENERAL: TOBACCO USE ARE YOU A:CURRENT SMOKER ARE YOU INTERESTED IN QUITTING?THINKING ABOUT QUITTING IS USING VAPE TO HELP HER QUIT PREVIOUS QUIT ATTEMPTS?NO. COUNSELED THE PATIENT ON SMOKING CESSATION, EDUCATION [id number]/04/2021 HOW MANY CIGARETTES A DAY DO YOU SMOKE?11-20 HOW SOON AFTER YOU WAKE UP DO YOU SMOKE YOUR FIRST CIGARETTE?WITHIN 5 MIN HOW OFTEN DO YOU SMOKE CIGARETTES?EVERY DAY PATIENT COUNSELED ON THE DANGERS OF TOBACCO USE AND URGED TO QUIT:09/13/2020 LATEX QUESTIONNAIRE LATEX ALLERGY : HAVE YOU EVER DEVELOPED ANY TYPE OF REACTION AFTER HANDLING LATEX PRODUCTS SUCH RUBBER GLOVES, CONDOMS, DIAPHRAGMS, BALLOONS, SOCKS, OR UNDERWEAR?NO LATEX ALLERGY : HAVE YOU EVER DEVELOPED ANY TYPE OF REACTION DURING OR AFTER DENTAL APPOINTMENT, VAGINAL/RECTAL EXAMINATION, SURGICAL PROCEDURE, OR ANY OTHER EXPOSURE?NO LATEX RISK : HAVE YOU EVER HAD ANY DIFFICULTY BREATHING OR HIVES AFTER EATING OR HANDLING ANY FRUITS, OR VEGETABLES; SUCH KIWI, BANANAS, STONE FRUITS, OR CHESTNUTSNO LATEX RISK : DO YOU HAVE A PREVIOUS PERSONAL HISTORY OF MORE THAN NINE SURGERIES, SPINA BIFIDA, OR REPEATED CATHERIZATIONS? NO LATEX RISK : ARE YOU FREQUENTLY EXPOSED TO LATEX PRODUCTS IN YOUR OCCUPATION?NO DATE ASKED : 11/29/2020 ALCOHOL SCREENING DID YOU HAVE A DRINK CONTAINING ALCOHOL IN THE PAST YEAR?NO POINTS0 INTERPRETATIONNEGATIVE RECREATIONAL DRUG USE DRUG USE? NO , PATIENT DENIES ABUSE OR MISSUSED OF ANY MEDICATION . , PATIENT DENIES USE OF ANY ILLEGAL SUBSTANCE INCLUDING MARIJUANA OR COCAINE .. CAFFEINE CAFFEINE USE? NO 2-3 CUPS COFFEE PER DAY. 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 MARITAL STATUS: SINGLE. OTHERS AT HOME: OTHER NON-RELATIVE. TODAY'S VISIT 04/15/2020 PATIENT DESCRIBES PAIN :ACHING, STABBING, THROBBING FROM 0-10, WHAT LEVEL IS YOUR PAIN TODAY?7 PRECIPITATING FACTORS LIFTING, TWISTING, TURNING ALLEVIATING FACTORS LAYING DOWN HELPS PAIN CLINIC PFS, CLERGY, PUBLIC HEALTH REFERRALS PFS REFERRAL NEEDED?NO CLERGY REFERRAL NEEDED?NO PUBLIC HEALTH REFERRAL NEEDED?NO HAS THE PATIENT BEEN EDUCATED REGARDING HIS/HER PLAN OF CARE?YES HAS THE PATIENT BEEN EDUCATED REGARDING PAIN, THE RISK FOR PAIN, THE IMPORTANCE OF EFFECTIVE PAIN MANAGEMENT, AND THE PAIN ASSESSMENT PROCESS?YES ADVANCE DIRECTIVE ADVANCE DIRECTIVE DISCUSSED WITH PATIENT:YES PT DECLINES INFORMATION OR ASSISTANCE AT THIS TIME REVIEWED WITH PT 04/03/19 1400 LASREVIEWED WITH PT 06/24/19 1413 NLJ. HOSPITALIZATION/MAJOR DIAGNOSTIC PROCEDURE SURGERY 1993 REVIEW OF SYSTEMS CONSTITUTIONAL: ANY RECENT FEVER NO . CHILLS NO . WEIGHT CHANGE OF UNKNOWN REASONS NO . GASTROENTEROLOGY: NEW UNEXPLAINABLE CHANGES IN BOWEL CONTROL NO . CONSTIPATION NO . GENITOURINARY: ANY NEW CHANGE IN BLADDER CONTROL? NO . NEUROLOGY: NEW ONSET DIZZINESS OR NEUROLOGICAL CHANGES NOT MENTIONED NO . NEW NUMBNESS OR PAIN PATTERNS NOT MENTIONED AND PERTINENT TO TODAY'S VISIT NO . CARDIOLOGY: NEW CHEST PRESSURE NO . NEW CHEST PAIN NO . RESPIRATORY: UNEXPLAINABLE COUGH NO . NEW SHORTNESS OF BREATH NO . VITAL SIGNS WT 146.8 LBS, HT 67", BMI 22.99 INDEX, BP 135/90 MM HG, HR 116 /MIN, RR 18 /MIN, TEMP 97.0 F, OXYGEN SAT % 99%, SAFE IN ENV? (Y/N) Y, NA INITIALS AW 1417, REVIEWED BY: EM. EXAMINATION GENERAL EXAMINATION: GENERALNO ACUTE DISTRESS, WELL NOURISHED AND HYDRATED. PSYCHAPPROPRIATE MOOD AND AFFECT . LUNGS:CLEAR TO AUSCULTATION BILATERALLY, NO WHEEZES, RHONCHI, RALES. HEART:NO MURMURS, REGULAR RATE AND RHYTHM. ASSESSMENTS LUMBAR POST-LAMINECTOMY SYNDROME - M96.1 (PRIMARY) TREATMENT LUMBAR POST-LAMINECTOMY SYNDROME NOTES: 40-YEAR-OLD FEMALE IN FOR CHRONIC PAIN FOLLOW-UP. GIVEN PRESENTING SYMPTOMS RECOMMEND CONTINUATION OF CURRENT MEDICATION REGIMEN WITH FOLLOW-UP IN 3 MONTHS. PATIENT HAS EXPRESSED UNDERSTANDING OF AND WAS IN AGREEMENT WITH TREATMENT PLAN. GIVEN TIME TO ASK QUESTIONS AND EXPRESS CONCERNS. , ISTOP REGISTRY REVIEWED AND DEMONSTRATES COMPLLIANCE. (REF # ) BRINGS IN MEDICATIONS WHICH IS APPROPRIATE FOR WHAT WAS DISPENSED. RECENT URINE TOXICOLOGY REVIEWED. NO UNAUTHORIZED MEDICATIONS. NO ILLICIT SUBSTANCES AND PRESCRIBED MEDICATIONS WERE PRESENT. PROCEDURE CODES FA211 ESTABILISHED PATIENT [facility] CHARGE DISPOSITION & COMMUNICATION FOLLOW UP 3 MONTHS (REASON: BACK PAIN) ELECTRONICALLY SIGNED BY GAL COSTA ON 11/30/2020 AT 10:08 AM EST DISCLAIMER : THIS IS A VISIT SUMMARY EXTRACTED FROM THE [employer] CHART. IT IS NOT A COPY OF THE [employer] PROGRESS NOTE. MATTHEW
== END ==
LOC: M PAIN 14:00
PROVIDERS: ATTEND Family Medicine
DX: M96.1 Postlaminectomy syndrome, not elsewhere classified (principal); F17.210 Nicotine dependence, cigarettes, uncomplicated; Z79.891 Long term (current) use of opiate analgesic; Z79.899 Other long term (current) drug therapy

== ENCOUNTER → 2021-03-29 | Outpatient (CLI) | payer MEDICAID, OTHER ==
--- NOTE | 2021-03-31 04:43 | ECWPNPC ---
PATIENT NAME: RADHA RODRÍGUEZ : 1980 GENDER: FEMALE VISIT DATE: 03/29/2021 DISCHARGE DATE: 03/29/21 1452 VISIT LOCKED DATE TIME: PHYSICIAN: KARSTEN JIMENEZ RESOURCE: KARSTEN JIMENEZ REASON FOR APPOINTMENT 1. BACK PAIN HISTORY OF PRESENT ILLNESS DEPRESSION SCREENING: PHQ-2 (2015 EDITION) LITTLE INTEREST OR PLEASURE IN DOING THINGS?NOT AT ALL FEELING DOWN, DEPRESSED, OR HOPELESS?NOT AT ALL TOTAL SCORE0 GENERAL: HPI 40-YEAR-OLD FEMALE IN FOR CHRONIC PAIN FOLLOW-UP. SHE RATES HER PAIN CURRENTLY AT A 7 OUT OF 10 AND DESCRIBES IT A CLAMPING FEELING. SHE FEELS HER MEDICATIONS ARE HELPFUL AND DENIES MED SIDE EFFECTS AT THIS TIME.. -. FALL RISK SCREENING: SCREENING : NO FALLS REPORTED IN THE LAST YEAR. PAIN SCREENING: PATIENT HAS A COMPLAINT OF ACUTE OR CHRONIC PAIN :YES LOCATION OF PAIN:LOW BACK INTENSITY OF PAIN (SCALE OF 1 TO 10):7 WHAT DOES YOUR PAIN FEEL LIKE:OTHER CLAMPING FEELING DURATION:CONTINOUS, CONSTANT, AWAKENS FROM SLEEP PAIN IS INCREASED BY:ACTIVITIES, PROLONGED STANDING, OTHERS PROLONGED SITTING PAIN IS DECREASED BY:USE OF PAIN MEDICATIONS NURSING NOTE: -. PAIN CENTER INTAKE QUESTIONS: DO YOU HAVE A HISTORY OF MRSA? :NO DO YOU TAKE A BLOOD THINNERS? :NO DO YOU HAVE ANY BLEEDING DISORDERS? :NO ANY NEW NUMBNESS OR WEAKNESS IN YOUR LEGS OR ARMS? :NO ANY PACEMAKER,DEFIBRILLATOR, OR DORSAL COLUMN STIMULATOR? :NO DO YOU HAVE ANY RASHES OR OPEN SORES? :NO ARE YOU ALLERGIC TO IV DYE? :NO ARE YOU DIABETIC? :NO ANY NEW PROBLEMS WITH YOUR MEDICATIONS? :NO HAVE YOU RECEIVED A VACCINE IN THE PAST 30 DAYS? :NO DO YOU PLAN TO RECEIVE A VACCINE IN THE NEXT 21 DAYS? :YES IF SO WHAT VACCINE AND WHEN? WOULD LIKE THE COVID VACCINATION WHEN IT BECOMES AVAILABLE. DO YOU NEED ANY PRESCRIPTION? :NO DO YOU TAKE ANY IMMUNOSUPPRESSIVE MEDICATIONS? :NO IS THERE A CHANCE YOU COULD BE ? :NO ARE YOU BREAST FEEDING? :NO CURRENT MEDICATIONS TAKING MULTIVITAMIN ADULT - TABLET 1 TABLET ORALLY DAILY TAKING ACETAMINOPHEN 500 MG CAPSULE 2 CAPSULES NEEDED ORALLY EVERY 6 HRS TAKING MELOXICAM 15 MG TABLET 1 TABLET ORALLY BEFORE BEDTIME TAKING BACLOFEN 20 MG TABLET 1 TABLET WITH FOOD OR MILK MAY HALF TAB IF NEEDED ORALLY THREE TIMES A DAY NEEDED MDD3 TAKING TRAMADOL HCL 50 MG TABLET 1-2 TABLET NEEDED ORALLY Q6H PRN MDD6 #130 TAB SHOULD LAST 30 DAYS TAKING PERCOCET 5-325 MG TABLET 1 TABLET NEEDED ORALLY Q6H PRN PAIN MDD4 #75 TAB SHOULD LAST 30 DAYS TAKING BELBUCA 600 MCG FILM 1 FILM TO THE GUM BUCALLY EVERY 12 HRS MDD2 TAKING CARISOPRODOL 350 MG TABLET 1 TABLET NEEDED ORALLY BEFORE BEDTIME PRN MDD1 #25 TAB SHOULD LAST 30 DAYS MEDICATION LIST REVIEWED AND RECONCILED WITH THE PATIENT PAST MEDICAL HISTORY HEART MURMUR A CHILD HEAD INJURY A CHILD BACK AND NECK PAIN ARTHRITIS SEVERE WEAKNESS LEFT LEG AT TIMES ALLERGIES ANIMAL FUR: HIVES - ALLERGY PERFUME: SNEEZING - ALLERGY SOCIAL HISTORY GENERAL: TOBACCO USE ARE YOU A:CURRENT SMOKER ARE YOU INTERESTED IN QUITTING?THINKING ABOUT QUITTING PREVIOUS QUIT ATTEMPTS?NO. COUNSELED THE PATIENT ON SMOKING CESSATION, EDUCATION [id number]/04/2021 HOW MANY CIGARETTES A DAY DO YOU SMOKE?11-20 HOW SOON AFTER YOU WAKE UP DO YOU SMOKE YOUR FIRST CIGARETTE?WITHIN 5 MIN HOW OFTEN DO YOU SMOKE CIGARETTES?EVERY DAY PATIENT COUNSELED ON THE DANGERS OF TOBACCO USE AND URGED TO QUIT:09/13/2020 LATEX QUESTIONNAIRE LATEX ALLERGY : HAVE YOU EVER DEVELOPED ANY TYPE OF REACTION AFTER HANDLING LATEX PRODUCTS SUCH RUBBER GLOVES, CONDOMS, DIAPHRAGMS, BALLOONS, SOCKS, OR UNDERWEAR?NO LATEX ALLERGY : HAVE YOU EVER DEVELOPED ANY TYPE OF REACTION DURING OR AFTER DENTAL APPOINTMENT, VAGINAL/RECTAL EXAMINATION, SURGICAL PROCEDURE, OR ANY OTHER EXPOSURE?NO LATEX RISK : HAVE YOU EVER HAD ANY DIFFICULTY BREATHING OR HIVES AFTER EATING OR HANDLING ANY FRUITS, OR VEGETABLES; SUCH KIWI, BANANAS, STONE FRUITS, OR CHESTNUTSNO LATEX RISK : DO YOU HAVE A PREVIOUS PERSONAL HISTORY OF MORE THAN NINE SURGERIES, SPINA BIFIDA, OR REPEATED CATHERIZATIONS? NO LATEX RISK : ARE YOU FREQUENTLY EXPOSED TO LATEX PRODUCTS IN YOUR OCCUPATION?NO DATE ASKED : 03/29/2021 ALCOHOL USE: NO. ALCOHOL SCREENING DID YOU HAVE A DRINK CONTAINING ALCOHOL IN THE PAST YEAR?NO POINTS0 INTERPRETATIONNEGATIVE RECREATIONAL DRUG USE DRUG USE? NO , PATIENT DENIES ABUSE OR MISSUSED OF ANY MEDICATION . , PATIENT DENIES USE OF ANY ILLEGAL SUBSTANCE INCLUDING MARIJUANA OR COCAINE .. CAFFEINE CAFFEINE USE? NO 2-3 CUPS COFFEE PER DAY. 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 MARITAL STATUS: SINGLE. OTHERS AT HOME: OTHER NON-RELATIVE. TODAY'S VISIT 04/15/2020 PATIENT DESCRIBES PAIN :ACHING, STABBING, THROBBING FROM 0-10, WHAT LEVEL IS YOUR PAIN TODAY?7 PRECIPITATING FACTORS LIFTING, TWISTING, TURNING ALLEVIATING FACTORS LAYING DOWN HELPS - PFS REFERRAL NEEDED?NO CLERGY REFERRAL NEEDED?NO PUBLIC HEALTH REFERRAL NEEDED?NO HAS THE PATIENT BEEN EDUCATED REGARDING HIS/HER PLAN OF CARE?YES HAS THE PATIENT BEEN EDUCATED REGARDING PAIN, THE RISK FOR PAIN, THE IMPORTANCE OF EFFECTIVE PAIN MANAGEMENT, AND THE PAIN ASSESSMENT PROCESS?YES ADVANCE DIRECTIVE ADVANCE DIRECTIVE DISCUSSED WITH PATIENT:YES PT DECLINES INFORMATION OR ASSISTANCE AT THIS TIME REVIEWED WITH PT 04/03/19 1400 LASREVIEWED WITH PT 06/24/19 1413 NLJ. REVIEW OF SYSTEMS CONSTITUTIONAL: ANY RECENT FEVER NO . CHILLS NO . WEIGHT CHANGE OF UNKNOWN REASONS NO . GASTROENTEROLOGY: NEW UNEXPLAINABLE CHANGES IN BOWEL CONTROL NO . CONSTIPATION NO . GENITOURINARY: ANY NEW CHANGE IN BLADDER CONTROL? NO . NEUROLOGY: NEW ONSET DIZZINESS OR NEUROLOGICAL CHANGES NOT MENTIONED NO . NEW NUMBNESS OR PAIN PATTERNS NOT MENTIONED AND PERTINENT TO TODAY'S VISIT NO . CARDIOLOGY: NEW CHEST PRESSURE NO . PATIENT DENIES NO . RESPIRATORY: UNEXPLAINABLE COUGH NO . NEW SHORTNESS OF BREATH NO . VITAL SIGNS WT 139.8 LBS, HT 67", BMI 21.89 INDEX, BP 139/98 MM HG, HR 101 /MIN, RR 16 /MIN, TEMP 98.4 F, OXYGEN SAT % 98%, SAFE IN ENV? (Y/N) YES, NA INITIALS [place] 14:17, REVIEWED BY: AZIZA WADE MA. EXAMINATION GENERAL EXAMINATION: GENERALNO ACUTE DISTRESS, WELL NOURISHED AND HYDRATED. PSYCHAPPROPRIATE MOOD AND AFFECT . LUNGS:CLEAR TO AUSCULTATION BILATERALLY, NO WHEEZES, RHONCHI, RALES. HEART:NO MURMURS, REGULAR RATE AND RHYTHM. ASSESSMENTS LUMBAR POST-LAMINECTOMY SYNDROME - M96.1 (PRIMARY), RISK: (NULL) USE OF OPIATES FOR THERAPEUTIC PURPOSES - Z79.891, RISK: (NULL) TREATMENT LUMBAR POST-LAMINECTOMY SYNDROME NOTES: 40-YEAR-OLD FEMALE IN FOR CHRONIC PAIN FOLLOW-UP. GIVEN PRESENTING SYMPTOMS RECOMMENDED CONTINUATION OF CURRENT MEDICATION REGIMEN WITH FOLLOW-UP IN 3 MONTHS. PATIENT EXPRESSED UNDERSTANDING OF AND WAS IN AGREEMENT WITH TREATMENT PLAN. GIVEN TIME TO ASK QUESTIONS AND EXPRESS CONCERNS. [employer] REVIEWED AND DEMONSTRATES COMPLLIANCE. (REF #[id number] ) BRINGS IN MEDICATIONS WHICH IS APPROPRIATE FOR WHAT WAS DISPENSED. RECENT URINE TOXICOLOGY REVIEWED. NO UNAUTHORIZED MEDICATIONS. NO ILLICIT SUBSTANCES AND PRESCRIBED MEDICATIONS WERE PRESENT. USE OF OPIATES FOR THERAPEUTIC PURPOSES LAB: URINE TEST GROUP GOVIND WADE 03/29/2021 2:49:24 PM > LAST DOSE: OXYCODONE 03/28/2021 AT 1900; TRAMADOL 03/29/2021 AT 12PM; CARISPORADOL 03/25/2021; BELBUCA 03/29/2021 AT 0700 PROCEDURE CODES FA211 ESTABILISHED PATIENT [facility] CHARGE DISPOSITION & COMMUNICATION FOLLOW UP 3 MONTHS (REASON: BACK PAIN ) ELECTRONICALLY SIGNED BY GAL COSTA ON 03/30/2021 AT 09:54 AM EDT DISCLAIMER : THIS IS A VISIT SUMMARY EXTRACTED FROM THE [employer] CHART. IT IS NOT A COPY OF THE [employer] PROGRESS NOTE. MATTHEW
== END ==
LOC: M PAIN 14:00
PROVIDERS: ATTEND Family Medicine
DX: M96.1 Postlaminectomy syndrome, not elsewhere classified (principal); F17.210 Nicotine dependence, cigarettes, uncomplicated; Z91.09 Other allergy status, other than to drugs and biological substances; Z79.891 Long term (current) use of opiate analgesic; Z79.899 Other long term (current) drug therapy

== ENCOUNTER → 2021-10-14 | Outpatient (CLI) | payer OTHER | LOC: M PAIN 13:45 | PROVIDERS: ATTEND Anesthesiology | DX: Z53.29 Procedure and treatment not carried out because of patient's decision for other reasons (principal) ==

== ENCOUNTER → 2021-11-07 | Outpatient (CLI) | payer OTHER | LOC: M PAIN 13:00 | PROVIDERS: ATTEND Anesthesiology | DX: M96.1 Postlaminectomy syndrome, not elsewhere classified (principal); F17.210 Nicotine dependence, cigarettes, uncomplicated; Z79.891 Long term (current) use of opiate analgesic; Z79.899 Other long term (current) drug therapy ==

== ENCOUNTER → 2022-01-26 | Outpatient (CLI) | payer OTHER | LOC: M PAIN 14:15 | PROVIDERS: ATTEND Anesthesiology | DX: M96.1 Postlaminectomy syndrome, not elsewhere classified (principal); M47.816 Spondylosis without myelopathy or radiculopathy, lumbar region; F17.210 Nicotine dependence, cigarettes, uncomplicated; Z88.5 Allergy status to narcotic agent; Z79.891 Long term (current) use of opiate analgesic; Z79.899 Other long term (current) drug therapy | CPT/HCPCS: 76000; G0463 ==

== ENCOUNTER → 2022-07-17 | Outpatient (CLI) | payer OTHER | LOC: M PAIN 11:45 | PROVIDERS: ATTEND Nurse Practitioner Family | DX: M96.1 Postlaminectomy syndrome, not elsewhere classified (principal); M54.2 Cervicalgia; M19.90 Unspecified osteoarthritis, unspecified site; F17.210 Nicotine dependence, cigarettes, uncomplicated; Z79.891 Long term (current) use of opiate analgesic; Z79.899 Other long term (current) drug therapy; J30.81 Allergic rhinitis due to animal (cat) (dog) hair and dander; Z91.048 Other nonmedicinal substance allergy status; Z88.8 Allergy status to other drugs, medicaments and biological substances ==

== ENCOUNTER → 2022-08-16 | Outpatient (CLI) | payer OTHER | LOC: M PAIN 15:00 | PROVIDERS: ATTEND Anesthesiology | DX: M96.1 Postlaminectomy syndrome, not elsewhere classified (principal); G89.29 Other chronic pain; F17.210 Nicotine dependence, cigarettes, uncomplicated; Z88.5 Allergy status to narcotic agent; Z91.09 Other allergy status, other than to drugs and biological substances; Z79.891 Long term (current) use of opiate analgesic; Z79.899 Other long term (current) drug therapy ==

== ENCOUNTER → 2023-01-29 | Outpatient (CLI) | payer OTHER | LOC: M PAIN 15:00 | PROVIDERS: ATTEND Anesthesiology | DX: M96.1 Postlaminectomy syndrome, not elsewhere classified (principal); M47.816 Spondylosis without myelopathy or radiculopathy, lumbar region; G89.29 Other chronic pain; F17.210 Nicotine dependence, cigarettes, uncomplicated; Z88.5 Allergy status to narcotic agent; Z79.891 Long term (current) use of opiate analgesic; Z79.899 Other long term (current) drug therapy | CPT/HCPCS: 76000; G0463 ==

== ENCOUNTER → 2023-05-23 | Outpatient (CLI) | payer OTHER | LOC: M PAIN 11:30 | PROVIDERS: ATTEND Anesthesiology | DX: M96.1 Postlaminectomy syndrome, not elsewhere classified (principal); G89.29 Other chronic pain; F17.210 Nicotine dependence, cigarettes, uncomplicated; Z88.5 Allergy status to narcotic agent; Z79.891 Long term (current) use of opiate analgesic; Z79.899 Other long term (current) drug therapy ==

== ENCOUNTER → 2023-06-19 | Outpatient (CLI) | payer OTHER | LOC: M PAIN 16:15 | PROVIDERS: ATTEND Nurse Practitioner Family | DX: M96.1 Postlaminectomy syndrome, not elsewhere classified (principal); Z79.891 Long term (current) use of opiate analgesic; F17.210 Nicotine dependence, cigarettes, uncomplicated; Z79.899 Other long term (current) drug therapy; Z88.8 Allergy status to other drugs, medicaments and biological substances; J30.81 Allergic rhinitis due to animal (cat) (dog) hair and dander; J30.89 Other allergic rhinitis ==

== ENCOUNTER → 2023-07-23 | Outpatient (CLI) | payer OTHER | LOC: M PAIN 16:00 | PROVIDERS: ATTEND Nurse Practitioner Family | DX: M96.1 Postlaminectomy syndrome, not elsewhere classified (principal); G89.29 Other chronic pain; F17.210 Nicotine dependence, cigarettes, uncomplicated; Z79.891 Long term (current) use of opiate analgesic; Z79.899 Other long term (current) drug therapy ==

== ENCOUNTER → 2023-08-30 | Outpatient (CLI) | payer OTHER | LOC: M PAIN 15:30 | PROVIDERS: ATTEND Nurse Practitioner Family | DX: M96.1 Postlaminectomy syndrome, not elsewhere classified (principal); G89.29 Other chronic pain; F17.210 Nicotine dependence, cigarettes, uncomplicated; Z80.42 Family history of malignant neoplasm of prostate; Z91.048 Other nonmedicinal substance allergy status; Z79.891 Long term (current) use of opiate analgesic; Z79.899 Other long term (current) drug therapy ==

== ENCOUNTER → 2024-01-10 | Outpatient (CLI) | payer OTHER | LOC: M PAIN 15:45 | PROVIDERS: ATTEND Anesthesiology | DX: M96.1 Postlaminectomy syndrome, not elsewhere classified (principal); F17.210 Nicotine dependence, cigarettes, uncomplicated; Z79.899 Other long term (current) drug therapy; Z91.048 Other nonmedicinal substance allergy status; J30.81 Allergic rhinitis due to animal (cat) (dog) hair and dander ==

== ENCOUNTER → 2024-12-31 | Outpatient (CLI) | payer OTHER | LOC: M PAIN 13:00 | PROVIDERS: ATTEND Anesthesiology | DX: M96.1 Postlaminectomy syndrome, not elsewhere classified (principal); M47.816 Spondylosis without myelopathy or radiculopathy, lumbar region; G89.29 Other chronic pain; F17.210 Nicotine dependence, cigarettes, uncomplicated; Z79.891 Long term (current) use of opiate analgesic; Z79.899 Other long term (current) drug therapy; Z91.048 Other nonmedicinal substance allergy status ==